=== PATIENT | male | born 1975 | race Caucasian/White ===

== ENCOUNTER 2018-03-13 23:59 | Emergency (ER) | payer BC ==
[2018-03-14] MEDS ORDERED: NORMAL SALINE 1000 ML 1,000 ML IV ONE (00:04)
--- NOTE | 2018-03-14 00:07 | ER Document Report ---
ED General - General Stated Complaint: POSSIBLE INTOXICATION Time Seen by Provider: 03/14/18 00:04 Notes: Patient is a 42-year-old male who presents with complaint of severe alcohol intoxication. Apparently his girlfriend found him in the bed and she felt he was not breathing appropriately and looked unwell and was unresponsive and therefore ambulance was called. Family in the past patient had alcohol poisoning so bad he had to be life flighted. Patient says he drank approximate half a gallon of vodka tonight. He says he does not drink every night but drinks occasionally. He has no other complaints this time. Is now awake and alert. He says he otherwise feels okay. - Related Data Allergies/Adverse Reactions: tamsulosin HCl [From [employer]] Allergy (Verified 04/15/13 17:19) Past Medical History - Social History Smoking Status: Unknown if Ever Smoked Frequency of alcohol use: Occasional Drug Abuse: None Family History: Reviewed & Not Pertinent - Past Medical History Cardiac Medical History: Reports: Hx Hypercholesterolemia Pulmonary Medical History: Denies: Hx Tuberculosis Endocrine Medical History: Reports: Hx Hypothyroidism Renal/ Medical History: Reports: Hx Kidney Stones GI Medical History: Reports: Hx Gastroesophageal Reflux Disease Psychiatric Medical History: Reports: Hx Anxiety, Hx Depression - Immunizations Immunizations up to date: Yes Hx Diphtheria, Pertussis, Tetanus Vaccination: Yes Review of Systems - Review of Systems Notes: My Normal Review Basic REVIEW OF SYSTEMS: CONSTITUTIONAL : Denies fever, chills, or sweats. Denies recent illness. EENT: Denies eye, ear, throat, or mouth pain or symptoms. Denies nasal or sinus congestion. CARDIOVASCULAR: Denies chest pain. RESPIRATORY: Denies cough, cold, or chest congestion. Denies shortness of breath, difficulty breathing, or wheezing. GASTROINTESTINAL: Denies abdominal pain. Denies nausea, vomiting, or diarrhea. MUSCULOSKELETAL: Denies neck or back pain or joint pain or swelling. SKIN: Denies rash or skin lesions. NEUROLOGICAL: Had altered mental status and hard to awaken. ALL OTHER SYSTEMS REVIEWED AND NEGATIVE. Physical Exam - Vital signs Vitals: Resp Pulse Ox 19 99 03/13/18 23:45 03/13/18 23:45 - Notes Notes: General Appearance: Well nourished, alert, cooperative, no acute distress, no obvious discomfort. Vitals: reviewed, See vital signs table. Head: no swelling or tenderness to the head Eyes: PERRL, EOMI, Conjuctiva clear Mouth: No decreasd moisture Lungs: No wheezing, No rales, No rhonci, No accessory muscle use, good air exchange bilaterally. Heart: Normal rate, Regular rythm, No murmur, no rub Abdomen: Normal BS, soft, No rigidity, No abdominal tenderness, No guarding, no rebound, no abdominal masses, no organomegaly Extremities: strength 5/5 in all extremities, good pulses in all extremities, no swelling or tenderness in the extremities, no edema. Skin: warm, dry, appropriate color, no rash Neuro: Will slur his speech some., oriented x 3, normal affect, responds appropriately to questions. Nerves II through XII intact. Distal sensation intact. Gait not tested due to alcohol intoxication. Course - Re-evaluation Re-evalutation: 03/14/18 02:33 Patient's mother is at bedside. She conforms the history aware patient in the past has drank so much that he ended up in ICU and on a ventilator. This time he does not appear that he presented intoxicated. He is currently resting comfortably. His chemistry panel is normal. His vital signs are normal. Patient's mother is going to go home and will call her in the morning to give her an update and most likely I suspect the patient will be sober enough at that time to be able to go home. Patient's mother's name is Sandra and her phone number is [phone]. 03/14/18 05:52 Patient is awake and alert. He is able to answer questions appropriately is able stand on his own power maintain decent balance. He still smells of alcohol. I informed him that he is safe to go once he has a ride. I told him that his mom was willing to come pick him up. He does not want me because mom and he has his phone he says he will call someone different for a ride. Once he has a ride home he will be given his discharge papers and allowed to leave. I asked patient if he has any further concerns at this time patient says that he does not. Patient to return to ER if he has any concerns or feels unwell. Dictation of this chart was performed using voice recognition software; therefore, there may be some unintended grammatical errors. - Vital Signs Vital signs: Temp Pulse Resp BP Pulse Ox 97.5 F 18 129/91 H 98 03/14/18 00:13 03/14/18 05:01 03/14/18 05:01 03/14/18 05:01 - Laboratory Result Diagrams: 03/14/18 00:20 Discharge - Discharge Clinical Impression: Alcohol abuse Condition: Good Disposition: HOME, SELF-CARE Additional Instructions: Please stop drinking large amounts of alcohol. Continued alcohol use will lead to liver failure and probable . Please consider joining a support group such as Alcoholics Anonymous. Please return to the ER if you feel unwell or have any further concerns. Referrals: MARIAN MILLER MD [COMMUNITY BASED STAFF] - Follow up as needed
--- NOTE | 2018-03-14 00:53 | RADIOLOGY REPORT (SQ) ---
CT BRAIN AND CERVICAL SPINE WITHOUT IV CONTRAST HISTORY: Trauma. COMPARISON: None. TECHNIQUE: CT scan of the brain and cervical spine. This exam was performed according to our departmental dose-optimization program, which includes automated exposure control, adjustment of the mA and/or kV according to patient size and/or use of iterative reconstruction technique. FINDINGS: BRAIN: The ventricles, cisterns, and sulci are age-appropriate. The pritchett-white matter differentiation is preserved without evidence of acute infarction. No acute intracranial hemorrhage or extra-axial fluid collection is seen. No midline shift, mass effect, or hydrocephalus. No air-fluid levels are seen in the sinuses. No calvarial fracture. CERVICAL SPINE: No acute fracture. Straightening of the normal cervical lordosis, which may be due to cervical collar, muscle spasm, or patient positioning. No static listhesis. Vertebral body heights and disc spaces are preserved. No significant canal stenosis. No prevertebral soft tissue swelling. IMPRESSION: 1. No acute intracranial abnormality. 2. No acute fracture or static listhesis of the cervical spine.
[2018-03-14 01:02] LABS: ANION GAP 15 (5-19); BLOOD UREA NITROGEN 10 mg/dL (7-20); CALCIUM 9.1 mg/dL (8.4-10.2); CARBON DIOXIDE 24 mmol/L (22-30); CHLORIDE 106 mmol/L (98-107); GLUCOSE 98 mg/dL (75-110); POTASSIUM 4.2 mmol/L (3.6-5.0); SODIUM 144.6 mmol/L (137-145)
[2018-03-14 07:23] VITALS: BP 134/85
== END 2018-03-14 07:25 | disposition home or self-care (01) ==
LOC: ER 23:59
DX: F10.920 Alcohol use, unspecified with intoxication, uncomplicated (principal); E78.00 Pure hypercholesterolemia, unspecified; E03.9 Hypothyroidism, unspecified; Z87.442 Personal history of urinary calculi
CPT/HCPCS: 99285; 96360; 36415; 82962; 80048; 70450; 72125; J7030

== ENCOUNTER 2018-05-02 01:05 | Inpatient (IN) | payer BC ==
[2018-05-02] MEDS ORDERED: MULTIVITAMIN TABLET PO ONE (01:28)
[2018-05-02] MEDS ORDERED: THIAMINE HCL 100 MG, FOLIC ACID 1 MG in NORMAL SALINE 250 ML IV ONE (01:28)
[2018-05-02] MEDS ORDERED: NORMAL SALINE 1000 ML 1,000 ML IV ONE (01:28)
--- NOTE | 2018-05-02 01:29 | ER Document Report ---
ED General - General Chief Complaint: ETOH Abuse Stated Complaint: ETOH Time Seen by Provider: 05/02/18 01:12 Notes: Patient is a 42-year-old male who presents after calling the paramedics 61 to come to the ER because he needs help with alcohol abuse. Has been drinking consistently for about a week year. He says he will sometimes go a day or 2 without drinking. He says he has had some withdrawal in the past. Patient says that he drinks because he had divorce with his . This made him depressed. He says he is more depressed because he does not have custody of his son. He says he gets to see his son personally once a week. He says on the days that he has a sound he does not drink alcohol at all and he feels well ; however, when the son asked to go back to his mother he starts drinking again. He denies taking any drugs. Denies being on any medications. He says he is otherwise healthy. He denies any suicidal ideations. TRAVEL OUTSIDE OF THE [place] IN LAST 30 DAYS: No - Related Data Allergies/Adverse Reactions: tamsulosin HCl [From [employer]] Allergy (Verified 04/15/13 17:19) Past Medical History - Social History Smoking Status: Never Smoker Frequency of alcohol use: Heavy Drug Abuse: None Family History: Reviewed & Not Pertinent Patient has suicidal ideation: No Patient has homicidal ideation: No - Past Medical History Cardiac Medical History: Reports: Hx Hypercholesterolemia Pulmonary Medical History: Denies: Hx Tuberculosis Endocrine Medical History: Reports: Hx Hypothyroidism Renal/ Medical History: Reports: Hx Kidney Stones. Denies: Hx Peritoneal Dialysis GI Medical History: Reports: Hx Gastroesophageal Reflux Disease Psychiatric Medical History: Reports: Hx Anxiety, Hx Depression - Immunizations Immunizations up to date: Yes Hx Diphtheria, Pertussis, Tetanus Vaccination: Yes Review of Systems - Review of Systems Notes: My Normal Review Basic REVIEW OF SYSTEMS: CONSTITUTIONAL : Denies fever, chills, or sweats. Denies recent illness. EENT: Denies eye, ear, throat, or mouth pain or symptoms. Denies nasal or sinus congestion. CARDIOVASCULAR: Denies chest pain. RESPIRATORY: Denies cough, cold, or chest congestion. Denies shortness of breath, difficulty breathing, or wheezing. GASTROINTESTINAL: Denies abdominal pain. Denies nausea, vomiting, or diarrhea. Denies constipation. Last BM: MUSCULOSKELETAL: Denies neck or back pain or joint pain or swelling. SKIN: Denies rash or skin lesions. NEUROLOGICAL: Denies altered mental status or loss of consciousness. Denies headache. Denies weakness or paralysis or loss of use of either side. Denies problems with gait or speech. Denies sensory or motor loss. PSYCHIATRIC: Session. No suicidal ideations. ALL OTHER SYSTEMS REVIEWED AND NEGATIVE. Physical Exam - Vital signs Vitals: Resp Pulse Ox 17 96 05/02/18 01:18 05/02/18 01:18 - Notes Notes: General Appearance: Well nourished, alert, cooperative, no acute distress, no obvious discomfort. Well-appearing. Vitals: reviewed, See vital signs table. Head: no swelling or tenderness to the head Eyes: PERRL, EOMI, Conjuctiva clear Mouth: No decreasd moisture Lungs: No wheezing, No rales, No rhonci, No accessory muscle use, good air exchange bilaterally. Heart: Normal rate, Regular rythm, No murmur, no rub Abdomen: Normal BS, soft, No rigidity, No abdominal tenderness, No guarding, no rebound, no abdominal masses, no organomegaly Extremities: strength 5/5 in all extremities, good pulses in all extremities, no swelling or tenderness in the extremities, no edema. Skin: warm, dry, appropriate color, no rash Neuro: speech clear, oriented x 3, normal affect, responds appropriately to questions. Renal nerves II through XII are intact. Patient is pleasant but obvious intoxicated with alcohol. He is able move all 4 extremities on his own. I did not test gait at this time is for him to be more sober when testing gait. Course - Re-evaluation Re-evalutation: 05/02/18 06:14 Patient is alcohol abuse with depression. He is not suicidal and I do not feel he has been involuntary commitment paperwork. He wants to speak with mental health about further help in regards to both depression as well as resources for alcohol abuse. Once patient is clinically sober and not showing signs of withdrawal he will be medically stable for mental health evaluation. Dictation of this chart was performed using voice recognition software; therefore, there may be some unintended grammatical errors. - Vital Signs Vital signs: Temp Pulse Resp BP Pulse Ox 97.8 F 21 H 112/76 99 05/02/18 01:25 05/02/18 05:01 05/02/18 05:00 05/02/18 05:01 - Laboratory Result Diagrams: 05/02/18 01:35 05/02/18 01:35 Laboratory results interpreted by me: 05/02/18 05/02/18 01:35 01:35 RDW 14.3 H Sodium 146.4 H Anion Gap 21 H Glucose 152 H AST 88 H Total Protein 8.3 H Albumin 5.1 H Salicylates < 1.0 L Acetaminophen < 10 L Serum Alcohol 350 H* - EKG Interpretation by Me Additional EKG results interpreted by me: 05/02/18 02:18 EKG is reviewed and interpreted by me. EKG shows sinus rhythm with a rate of [address] segment elevation or depression. No ischemic T wave inversions. CA interval, QRS duration, QTc intervals are within normal range. Old EKG for comparison is from May 06, 2013.
[2018-05-02] MEDS ORDERED: FOLIC ACID INJ 5 MG/1 ML 10 ML VIAL IV PRN (01:49)
[2018-05-02] MEDS ORDERED: THIAMINE HCL INJ 200 MG/2 ML VIAL INJ PRN (01:49)
[2018-05-02 01:51] LABS: ABSOLUTE EOSINOPHILS # (AUTO) 0.1 10^3/uL (0.0-0.6); ABSOLUTE LYMPHOCYTES (AUTO) 2.4 10^3/uL (0.5-4.7); ABSOLUTE MONOCYTES (AUTO) 0.6 10^3/uL (0.1-1.4); ABSOLUTE NEUT (AUTO) 3.7 10^3/uL (1.7-8.2); BASOPHILS % (AUTO) 0.6 % (0-2); MEAN CORPUSCULAR HEMOGLOBIN 32.9 pg (27.0-33.4); MEAN CORPUSCULAR VOLUME 97 fl (80-97); MONOCYTES % (AUTO) 9.5 % (3-13); PLATELET COUNT 242 10^3/uL (150-450); RED BLOOD COUNT 4.85 10^6/uL (4.35-5.55); RED CELL DISTRIBUTION WIDTH 14.3 % (11.5-14.0); SEGMENTED NEUTROPHILS % (AUTO) 53.9 % (42-78); TOTAL CELLS COUNTED % (AUTO) 100 %; WHITE BLOOD COUNT 6.8 10^3/uL (4.0-10.5)
[2018-05-02 02:02] LABS: ALANINE AMINOTRANSFERASE 36 U/L (21-72); ALBUMIN 5.1 g/dL (3.5-5.0); ALKALINE PHOSPHATASE 67 U/L (38-126); ASPARTATE AMINO TRANSFERASE 88 U/L (17-59); BILIRUBIN,DIRECT 0.3 mg/dL (0.0-0.4); BILIRUBIN,TOTAL 0.5 mg/dL (0.2-1.3); BLOOD UREA NITROGEN 9 mg/dL (7-20); CALCIUM 9.9 mg/dL (8.4-10.2); CHLORIDE 101 mmol/L (98-107); GLUCOSE 152 mg/dL (75-110); POTASSIUM 3.7 mmol/L (3.6-5.0); TOTAL PROTEIN 8.3 g/dL (6.3-8.2)
[2018-05-02 02:05] LABS: ACETAMINOPHEN < 10 ug/mL (10-30); SALICYLATE < 1.0 mg/dL (2.0-20.0)
[2018-05-02 02:07] LABS: CARBON DIOXIDE 24 mmol/L (22-30); SODIUM 146.4 mmol/L (137-145)
[2018-05-02 02:09] LABS: ANION GAP 21 (5-19)
[2018-05-02 02:12] LABS: ALCOHOL 350 mg/dL (NONE DETECTED)
--- NOTE | 2018-05-02 07:43 | EKG REPORT ---
SEVERITY:- NORMAL ECG - SINUS RHYTHM : Confirmed by: Les Pedraza MD 02-May-2018 07:42:36
[2018-05-02] MEDS ORDERED: LORAZEPAM INJ 2 MG/1 ML VIAL IV ONE (09:48)
[2018-05-02] MEDS ORDERED: NORMAL SALINE 250 ML IV ONE (09:49)
[2018-05-02] MEDS ORDERED: DIAZEPAM 5 MG TABLET PO ONE (10:01)
--- NOTE | 2018-05-02 10:06 | ER Document Report ---
ED General - General Chief Complaint: ETOH Abuse Stated Complaint: ETOH Time Seen by Provider: 05/02/18 01:12 TRAVEL OUTSIDE OF THE [place] IN LAST 30 DAYS: No - HPI Notes: Patient is a 42-year-old male that presents to the emergency department for chief complaint of alcohol abuse. Patient presented to the emergency room last night for concern of alcohol abuse. He states that he has been drinking heavily over the last few months. He attempted to wean himself off alcohol at home but knows that he was unable to detox completely by himself. Patient was requesting inpatient detox. He was evaluated by psychiatry this morning in an attempt to find placement for his alcohol detox. Patient is currently complaining of feeling very jittery. He is seeing shadow hallucinations in his vision. He is concerned that he may have a seizure. He does have a history of alcohol withdrawal seizures in the past. Past Medical History: Hypothyroidism, hyperlipidemia Past Surgical History: Reviewed in chart Social History: Alcohol abuse. Denies tobacco and drug use Family History: Reviewed and noncontributory for presenting illness Allergies: Reviewed, see documented allergy list. REVIEW OF SYSTEMS: CONSTITUTIONAL : No fever No chills diaphoresis No recent illness EENT: vision changes No congestion No sore throat CARDIOVASCULAR: No chest pain palpitations RESPIRATORY: No shortness of breath No cough No difficulty breathing GASTROINTESTINAL: No abdominal pain No nausea No vomiting No diarrhea GENITOURINARY: No dysuria No hematuria No difficulty urinating MUSCULOSKELETAL: No back pain No leg pain No arm pain SKIN: No rashes No lesions LYMPHATIC: No swollen, enlarged glands. NEUROLOGICAL: No lightheadedness No headache No weakness No paresthesias Tremors PSYCHIATRIC: anxiety No depression PHYSICAL EXAMINATION: Vital signs reviewed, nursing noted reviewed. GENERAL: Well-appearing, well-nourished and in no acute distress. HEAD: Atraumatic, normocephalic. EYES: Horizontal nystagmus. PERRLA, sclera anicteric, conjunctiva are normal. ENT: nares patent, oropharynx clear without exudates. Moist mucous membranes. NECK: Normal range of motion, supple without lymphadenopathy LUNGS: Breath sounds clear to auscultation bilaterally and equal. No wheezes rales or rhonchi. HEART: Tachycardic, regular rhythm without murmurs ABDOMEN: Soft, nontender, normoactive bowel sounds. No rebound, guarding, or rigidity. No masses appreciated. EXTREMITIES: Nontender, good range of motion, no pitting or edema. NEUROLOGICAL: Tremulous no focal neurological deficits. Moves all extremities spontaneously Motor and sensory grossly intact on exam. PSYCH: Anxious SKIN: Warm, Dry, normal turgor, no rashes or lesions noted on exposed skin - Related Data Allergies/Adverse Reactions: tamsulosin HCl [From [employer]] Allergy (Verified 04/15/13 17:19) Past Medical History - Social History Smoking Status: Never Smoker Frequency of alcohol use: Heavy Drug Abuse: None Family History: Reviewed & Not Pertinent Patient has suicidal ideation: No Patient has homicidal ideation: No - Past Medical History Cardiac Medical History: Reports: Hx Hypercholesterolemia Pulmonary Medical History: Denies: Hx Tuberculosis Endocrine Medical History: Reports: Hx Hypothyroidism Renal/ Medical History: Reports: Hx Kidney Stones. Denies: Hx Peritoneal Dialysis GI Medical History: Reports: Hx Gastroesophageal Reflux Disease Psychiatric Medical History: Reports: Hx Anxiety, Hx Depression - Immunizations Immunizations up to date: Yes Hx Diphtheria, Pertussis, Tetanus Vaccination: Yes Physical Exam - Vital signs Vitals: Resp Pulse Ox 17 96 05/02/18 01:18 05/02/18 01:18 Course - Re-evaluation Re-evalutation: 05/02/18 10:05 Vitals reviewed. Nursing notes reviewed. Patient is becoming tachycardic, tremulous and having visual hallucinations. He appears to be going into acute alcohol withdrawal. He was started on IV hydration and given Valium for his alcohol withdrawal symptoms. He has already received a dose of folate, thiamine and a multivitamin. Patient has a history of alcohol withdrawal seizures and seizure precautions were started. His case was discussed with Dr. Beach who will admit him to the ICU for acute alcohol withdrawal. Patient is in agreement with this plan. Repeat alcohol level and CMP today. - Vital Signs Vital signs: Temp Pulse Resp BP Pulse Ox 97.8 F 11 L 137/89 H 94 05/02/18 01:25 05/02/18 09:06 05/02/18 09:06 05/02/18 09:06 - Laboratory Result Diagrams: 05/02/18 01:35 05/02/18 01:35 Laboratory results interpreted by me: 05/02/18 05/02/18 01:35 01:35 RDW 14.3 H Sodium 146.4 H Anion Gap 21 H Glucose 152 H AST 88 H Total Protein 8.3 H Albumin 5.1 H Salicylates < 1.0 L Acetaminophen < 10 L Serum Alcohol 350 H* Critical Care Note - Critical Care Note Total time excluding time spent on procedures (mins): 35 Comments: alcohol withdrawls with developing visual changes and potential for seizure and further neurologic decompensation. Discharge - Discharge Clinical Impression: Alcohol withdrawal Qualifiers: Complication of substance-induced condition: uncomplicated Qualified Code(s): F10.230 - Alcohol dependence with withdrawal, uncomplicated Condition: Stable Disposition: ADMITTED INPATIENT Admitting Provider: Hospitalist Unit Admitted: ICU
[2018-05-02] MEDS ORDERED: ONDANSETRON HCL INJ/PF 4 MG/2 ML SDV IV PRN (10:08)
[2018-05-02] MEDS ORDERED: LEVALBUTEROL HCL NEB 1.25 MG/3 ML AMPUL NEB PRN (10:08)
[2018-05-02 10:22] LABS: APPEARANCE,URINE CLEAR; BILIRUBIN,URINE NEGATIVE (NEGATIVE); COLOR,URINE YELLOW; GLUCOSE, URINE NEGATIVE (NEGATIVE); KETONES,URINE NEGATIVE (NEGATIVE); LEUKOCYTE ESTERASE,URINE NEGATIVE (NEGATIVE); NITRITE,URINE NEGATIVE (NEGATIVE); PROTEIN,URINE 100 mg/dL (NEGATIVE); URINE SPECIFIC GRAVITY 1.009; UROBILINOGEN,URINE NEGATIVE mg/dL (<2.0)
[2018-05-02 10:29] LABS: URINE AMPHETAMINES SCREEN NEGATIVE; URINE BARBITURATES SCREEN NEGATIVE; URINE BENZODIAZEPINES SCREEN NEGATIVE; URINE COCAINE SCREEN NEGATIVE; URINE MARIJUANA (THC) SCREEN NEGATIVE; URINE METHADONE SCREEN NEGATIVE; URINE PHENCYCLIDINE SCREEN NEGATIVE
[2018-05-02] MEDS ORDERED: ATENOLOL 50 MG TABLET PO SCH (11:00)
[2018-05-02] MEDS: DIAZEPAM INJ 10 MG/2 ML DISP.SYRIN IV PRN ×4 (11:18→22:35)
[2018-05-02] MEDS: NORMAL SALINE 1000 ML 1,000 ML IV PRN ×3 (11:22→22:36)
[2018-05-02] MEDS: DIAZEPAM 5 MG TABLET PO SCH ×4 (13:13→23:53)
--- NOTE | 2018-05-02 13:18 | PSYCHOLOGICAL NOTE ---
Psych Note - Psych Note Date seen by psych provider: 05/02/18 Time seen by psych provider: 08:00 Psych Note: Reason for Consult: substance abuse Consent permissions: Patient's mother at bedside per patient's request Patient is a 42-year-old male who presents after calling EMS to come to the ED because he needs help with alcohol abuse. Patient disclosed that he has been drinking since approximately , when he was going through a divorce with his . He reports that he has attempted sobriety multiple times and sometimes can maintain it for a while but then ends up drinking again. 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 He reports embarrassment because of his drinking and needing help. He states that he has had seizures in the past from detoxing. He knew that he was at the breaking point and last night he was making phone calls to both the [facility] in a residential treatment facility in [place]. Patient is alert and orientated to person, place, time and circumstance. Mood is dysphoric with tearful affect. Patient denies homicidal and suicidal ideation. Delusions are absent behaviors congruent with intact reality based presentation i.e. organized and linear thought process. Eye contact is fair. Intellectual abilities appear to be within the average range. Attention and concentration are fair. Insight, judgment, impulse control are fair. Medication recommendations at this time 303.00 (F10.229) alcohol intoxication with use disorder; severe Impression\\plan: Patient is being admitted as a medical patient for detox. He reports wanting assistance in sobriety. Patient discloses just reaching out last night for both assistance in detox and possible longer term treatment. Patient will be reevaluated once sober to ensure he continues to want assistance. Dr. Nichole was consulted and the care management this patient; attending physicians in agreement with recommendations and disposition.
[2018-05-02] MEDS: HEPARIN SOD (PORCINE) 5,000 UNIT/ML 1 ML SYRINGE SUBCUT SCH ×2 (15:31→21:47)
--- NOTE | 2018-05-02 17:28 | PDOC H&P ---
History of Present Illness Admission Date/PCP: 05/02/18 10:29 Patient complains of: Desire to stop drinking alcohol History of Present Illness: ERWIN DE LA CRUZ is a 42 year old male who presented to the emergency room via EMS asking for help to stop drinking alcohol. He admits that at approximately 9 :30 PM last evening he was at home alone drinking and he had a sudden moment of realization that he absolutely had to stop drinking or he was going to . To this end he packed his bag and began walking to the emergency room. He was stopped by police on the highway where he was walking along the side of the road carrying his suitcase. When questioned by the police he told them that he needed to stop drinking alcohol and he was walking to the hospital to get help. The police contacted emergency medical services and the paramedics evaluated Erwin and then brought him to the [facility] emergency room for further evaluation and treatment. In the ER he was found to be intoxicated with a blood alcohol of 350. He was observed for several hours in the emergency room and was noted to become somewhat shaky resulting in administration of Ativan and the determination that he would need help in coping with his withdrawal symptoms. Erwin admits that he has been drinking very heavily for 5-6 years. He stopped drinking for over a month up until approximately 1 week ago when he started drinking again for unknown reasons. He admits that he generally drinks at least a little bit every day, or he starts to get shaky, but at least half of the days he drinks approximately 27 ounces of vodka. He further admits that he has detoxed on his own in the past at home and during that detoxification he experienced visual hallucinations and he is certain that he had at least one seizure as he had an episode of unexplained loss of bladder and bowel control. The remainder of his emergency room evaluation was essentially unremarkable. He was therefore admitted to the ICU for acute alcohol detoxification with the plan to place him in a inpatient rehab program upon finishing detox. Past Medical History Cardiac Medical History: Reports: Hyperlipidema Denies: Coronary Artery Disease, DVT, Myocardial Infarction, Hypertension, Pulmonary Embolism Pulmonary Medical History: Denies: Asthma, Chronic Obstructive Pulmonary Disease (COPD), Tuberculosis EENT Medical History: Reports: None Neurological Medical History: Reports: Seizures - With alcohol withdrawal Denies: Migraine, Multiple Sclerosis Endocrine Medical History: Reports: Hypothyroidism Denies: Diabetes Mellitus Type 1, Diabetes Mellitus Type 2 Renal/ Medical History: Denies: Chronic Kidney Disease, Nephrolithiasis Malignancy Medical History: Reports: None GI Medical History: Reports: Gastroesophageal Reflux Disease Denies: Crohn's Disease, Ulcerative Colitis Musculoskeltal Medical History: Denies: Arthritis, Gout Skin Medical History: Denies: Eczema, Psoriasis Psychiatric Medical History: Reports: Alcohol Dependency, Depression Denies: General Anxiety Disorder, Substance Abuse, Tobacco Dependency Traumatic Medical History: Reports: None Hematology: Denies: Anemia, Bleeding Tendencies Infectious Medical History: Reports: None Social History Information Source: Patient Lives with: Alone Smoking Status: Never Smoker Frequency of Alcohol Use: Heavy - See history of present illness Amount of Alcoholic Beverages Per Day: See history of present illness Last Alcohol Use: 05/01/18 - See history of present illness Hx Recreational Drug Use: No Drugs: None Hx Prescription Drug Abuse: No Past Social History Note: Erwin admits that he recently sought out help to stop drinking from his primary care provider where he received a prescription for naltrexone which he had used on a previous occasion to reduce his craving for alcohol. - Advance Directive Resuscitation Status: Full Code Surrogate healthcare decision maker:: Patient's mother Sandra Mock Family History Family History: Hyperlipidemia, Thyroid Disfunction Parental Family History Reviewed: Yes Children Family History Reviewed: No Sibling(s) Family History Reviewed.: Yes Medication/Allergy Home Medications: Hydrochlorothiazide [Hydrodiuril 12.5 mg Tablet] 12.5 mg PO DAILY 05/02/18 Levothyroxine Sodium [Synthroid 0.05 mg Tablet] 0.05 mg PO Q6AM 05/02/18 Lisinopril [Zestril] 20 mg PO DAILY 05/02/18 Metoprolol Succinate [Toprol Xl 25 mg Tab.sr] 25 mg PO DAILY 05/02/18 Naltrexone 50 mg PO DAILY 05/02/18 Allergies/Adverse Reactions: tamsulosin HCl [From Flomax] Allergy (Verified 04/15/13 17:19) Review of Systems Constitutional: ABSENT: chills, fever(s) Eyes: ABSENT: visual disturbances, other - Ocular pain Ears: ABSENT: hearing changes, other - Ear pain Nose, Mouth, and Throat: ABSENT: mouth pain, sore throat Cardiovascular: ABSENT: chest pain, dyspnea on exertion, edema, orthropnea, palpitations Respiratory: ABSENT: cough, dyspnea Gastrointestinal: ABSENT: abdominal pain, constipation, diarrhea, nausea, vomiting Genitourinary: ABSENT: dysuria, hematuria Musculoskeletal: ABSENT: back pain, joint swelling, other - Joint pain Integumentary: ABSENT: pruritus, rash Neurological: PRESENT: tremor(s). ABSENT: convulsions, vertigo Psychiatric: PRESENT: depression. ABSENT: anxiety, hallucinations, homidical ideation, suicidal ideation Endocrine: ABSENT: cold intolerance, heat intolerance Hematologic/Lymphatic: ABSENT: easy bleeding, easy bruising Allergic/Immunologic: ABSENT: seasonal rhinorrhea, other - Insect bite allergy Physical Exam Vital Signs: Temp Pulse Resp BP Pulse Ox 98.6 F 71 20 126/78 H 96 05/02/18 14:53 05/02/18 14:53 05/02/18 14:53 05/02/18 14:53 05/02/18 14:53 Intake & Output 04/30/18 05/01/18 05/02/18 23:59 23:59 23:59 Intake Total 631 Balance 631 Weight 74.1 kg General appearance: PRESENT: no acute distress, cooperative, well-developed, well-nourished, other - Patient appears to be tremulous at the time my evaluation. Head exam: PRESENT: atraumatic, normocephalic Eye exam: PRESENT: conjunctiva pink, EOMI. ABSENT: nystagmus, scleral icterus Ear exam: PRESENT: normal external ear exam. ABSENT: bleeding, drainage Mouth exam: PRESENT: neck supple, other - Oral mucosa moist and intact, dentition in good repair Neck exam: ABSENT: JVD, tracheal deviation Respiratory exam: PRESENT: clear to auscultation vinicio, symmetrical, unlabored Cardiovascular exam: PRESENT: RRR. ABSENT: clicks, gallop, rubs Pulses: PRESENT: normal radial pulses, normal dorsalis pedis pul Vascular exam: PRESENT: normal capillary refill. ABSENT: pallor GI/Abdominal exam: PRESENT: normal bowel sounds, soft. ABSENT: organolmegaly, tenderness Rectal exam: PRESENT: deferred Extremities exam: ABSENT: joint swelling, pedal edema Musculoskeletal exam: PRESENT: ambulatory, full ROM, normal inspection Neurological exam: PRESENT: alert, oriented to person, oriented to place, oriented to time, oriented to situation, CN II-XII grossly intact, other - Generalized tremulousness with mild hyperreflexia noted.. ABSENT: motor sensory deficit Psychiatric exam: PRESENT: appropriate affect, depressed Skin exam: PRESENT: dry, intact, warm. ABSENT: jaundice, rash, urticaria Assessment & Plan - Diagnosis (1) Alcohol withdrawal Qualifiers: Complication of substance-induced condition: with unspecified complication Qualified Code(s): F10.239 - Alcohol dependence with withdrawal, unspecified Is this a current diagnosis for this admission?: Yes Plan: Patient is admitted to the ICU and will be treated with IV fluids and he will be started on a regiment of IV diazepam 10 mg every hour as needed anxiety, agitation, tremulousness, hallucinations, seizure or aggressive behavior. He will also be on a scheduled dose of Valium 10 mg p.o. every 4 hours for 12 doses. (2) Alcoholism with alcohol dependence Qualifiers: Substance use status: in withdrawal Complication of substance-induced condition: with unspecified complication Qualified Code(s): F10.239 - Alcohol dependence with withdrawal, unspecified Is this a current diagnosis for this admission?: Yes Plan: Patient's alcohol withdrawal will be addressed as indicated above. After his acute detoxification he would like to be transferred to an inpatient alcohol rehab program and this will be the goal of our discharge planning efforts. (3) HTN (hypertension) Qualifiers: Hypertension type: essential hypertension Qualified Code(s): I10 - Essential (primary) hypertension Is this a current diagnosis for this admission?: Yes Plan: Patient will be continued on his usual antihypertensive regiment during his hospital course and at the time of discharge. Adjustments will only be made as required. (4) Hypothyroid Qualifiers: Hypothyroidism type: unspecified Qualified Code(s): E03.9 - Hypothyroidism , unspecified Is this a current diagnosis for this admission?: Yes Plan: Patient will be continued on his usual dose of thyroid replacement therapy throughout his hospitalization and upon discharge. A thyroid profile will be obtained to evaluate the efficacy of the patient's current therapy. - Time Time Spent: 30 to 50 Minutes Medications reviewed and adjusted accordingly: Yes Anticipated discharge: Other - Inpatient alcohol rehabilitation program - Inpatient Certification Based on my medical assessment, after consideration of the patient's comorbidities, presenting symptoms, or acuity I expect that the services needed warrant INPATIENT care.: Yes I certify that my determination is in accordance with my understanding of Medicare's requirements for reasonable and necessary INPATIENT services [42 CFR 412.3e].: Yes Medical Necessity: Need Close Monitoring Due to Risk of Patient Decompensation, Risk of Complication if Not Cared For in Hospital - Plan Summary Plan Summary: Patient will be admitted ICU for ongoing supportive care as well as active intervention and prevention of complications of alcohol withdrawal.
[2018-05-02] MEDS ORDERED: DIAZEPAM INJ 10 MG/2 ML DISP.SYRIN ONE (17:43)
[2018-05-02] MEDS: NORMAL SALINE 1000 ML 1,000 ML with POTASSIUM CHLORIDE 20 MEQ, MAGNESIUM SULFATE 8 MEQ,... IV SCH ×5 (17:57)
[2018-05-02] MEDS: DOCUSATE SODIUM 100 MG CAPSULE PO SCH (18:47)
[2018-05-02] MEDS: PANTOPRAZOLE SODIUM 40 MG VIAL IV SCH (21:47)
[2018-05-03 04:12] LABS: ABSOLUTE EOSINOPHILS # (AUTO) 0.1 10^3/uL (0.0-0.6); ABSOLUTE LYMPHOCYTES (AUTO) 1.3 10^3/uL (0.5-4.7); ABSOLUTE MONOCYTES (AUTO) 0.3 10^3/uL (0.1-1.4); ABSOLUTE NEUT (AUTO) 2.5 10^3/uL (1.7-8.2); BASOPHILS % (AUTO) 0.5 % (0-2); EOSINOPHILS % (AUTO) 2.1 % (0-6); HEMATOCRIT 37.6 % (37.9-51.0); MEAN CORPUSCULAR HGB CONC 34.1 g/dL (32.0-36.0); MEAN CORPUSCULAR VOLUME 97 fl (80-97); MONOCYTES % (AUTO) 6.4 % (3-13); PLATELET COUNT 141 10^3/uL (150-450); RED BLOOD COUNT 3.88 10^6/uL (4.35-5.55); RED CELL DISTRIBUTION WIDTH 14.3 % (11.5-14.0); TOTAL CELLS COUNTED % (AUTO) 100 %; WHITE BLOOD COUNT 4.2 10^3/uL (4.0-10.5)
[2018-05-03 04:13] LABS: INTERNATIONAL RATION (INR) 0.98; PROTHROMBIN TIME 13.4 SEC (11.4-15.4)
[2018-05-03 04:14] LABS: PARTIAL THROMBOPLASTIN TIME 32.2 SEC (23.5-35.8)
[2018-05-03 04:15] LABS: HEMOGLOBIN 12.8 g/dL (13.5-17.0)
[2018-05-03] MEDS: DIAZEPAM 5 MG TABLET PO SCH ×6 (04:30→22:15)
[2018-05-03 04:31] LABS: ALANINE AMINOTRANSFERASE 32 U/L (21-72); ALBUMIN 3.2 g/dL (3.5-5.0); ALKALINE PHOSPHATASE 57 U/L (38-126); AMYLASE 49 U/L (30-110); ANION GAP 9 (5-19); ASPARTATE AMINO TRANSFERASE 58 U/L (17-59); BILIRUBIN,DIRECT 0.2 mg/dL (0.0-0.4); BILIRUBIN,TOTAL 0.8 mg/dL (0.2-1.3); BLOOD UREA NITROGEN 7 mg/dL (7-20); CALCIUM 7.9 mg/dL (8.4-10.2); CARBON DIOXIDE 26 mmol/L (22-30); CHLORIDE 106 mmol/L (98-107); GLUCOSE 89 mg/dL (75-110); LIPASE 233.5 U/L (23-300); POTASSIUM 4.2 mmol/L (3.6-5.0); SODIUM 140.9 mmol/L (137-145); TOTAL PROTEIN 5.7 g/dL (6.3-8.2)
[2018-05-03 04:48] LABS: FREE T3 3.09 pg/mL (2.77-5.27); FREE T4 (FREE THYROXINE) 0.69 ng/dL (0.78-2.19)
[2018-05-03 05:02] LABS: THYROID STIMULATING HORMONE 4.4 uIU/mL (0.47-4.68)
[2018-05-03] MEDS: LEVOTHYROXINE SODIUM 0.05 MG TABLET PO SCH (05:49)
[2018-05-03] MEDS: HEPARIN SOD (PORCINE) 5,000 UNIT/ML 1 ML SYRINGE SUBCUT SCH ×2 (05:49→14:08)
[2018-05-03] MEDS: NORMAL SALINE 1000 ML 1,000 ML IV PRN ×2 (05:49→14:07)
[2018-05-03] MEDS ORDERED: (PENDING PHARMACY ID) (Lisinopril [Zestril] 20 MG) PO SCH (10:00)
[2018-05-03] MEDS ORDERED: NALTREXONE 50 MG PO SCH (10:00)
[2018-05-03] MEDS: DOCUSATE SODIUM 100 MG CAPSULE PO SCH ×2 (10:07→18:06)
[2018-05-03] MEDS: HYDROCHLOROTHIAZIDE 12.5 MG TABLET PO SCH (10:07)
[2018-05-03] MEDS: METOPROLOL SUCCINATE 25 MG TAB.SR.24H PO SCH (10:08)
[2018-05-03] MEDS: LISINOPRIL 10 MG TABLET PO SCH (10:09)
[2018-05-03] MEDS: PANTOPRAZOLE SODIUM 40 MG VIAL IV SCH (10:09)
[2018-05-03] MEDS: DIAZEPAM INJ 10 MG/2 ML DISP.SYRIN IV PRN ×2 (13:15→15:54)
--- NOTE | 2018-05-03 15:07 | PDOC PROGRESS REPORT ---
Subjective Progress Note for:: 05/03/18 Subjective:: ERWIN DE LA CRUZ is a 42 year old male who presented to the emergency room via EMS asking for help to stop drinking alcohol. He admits that at approximately 9 :30 PM last evening he was at home alone drinking and he had a sudden moment of realization that he absolutely had to stop drinking or he was going to . To this end he packed his bag and began walking to the emergency room. He was stopped by police on the highway where he was walking along the side of the road carrying his suitcase. When questioned by the police he told them that he needed to stop drinking alcohol and he was walking to the hospital to get help. The police contacted emergency medical services and the paramedics evaluated Erwin and then [facility] for further evaluation and treatment. In the ER he was found to be intoxicated with a blood alcohol of 350. He was observed for several hours in the emergency room and was noted to become somewhat shaky resulting in administration of Ativan and the determination that he would need help in coping with his withdrawal symptoms. Erwin admits that he has been drinking very heavily for 5-6 years. He stopped drinking for over a month up until approximately 1 week ago when he started drinking again for unknown reasons. He admits that he generally drinks at least a little bit every day, or he starts to get shaky, but at least half of the days he drinks approximately 27 ounces of vodka. He further admits that he has detoxed on his own in the past at home and during that detoxification he experienced visual hallucinations and he is certain that he had at least one seizure as he had an episode of unexplained loss of bladder and bowel control. The remainder of his emergency room evaluation was essentially unremarkable. He was therefore admitted to the ICU for acute alcohol detoxification with the plan to place him in a inpatient rehab program upon finishing detox. 05/03/2018: Erwin states that he is was feeling pretty good when he woke up this morning he rested well last night and he was not feeling shaky and even enjoyed eating some of his breakfast. He states sometime after breakfast he started having more tremulousness and that at the time of my evaluation he is feeling very tremulous and easy. He is having some problems with confusion and performing tasks utilizing higher memory functions. He has not had hallucinations or blackouts. He admits that he feels a lot better after receiving the IV Valium when he starts feeling shaky. He was happy to hear that his laboratory work was essentially unremarkable today. We will continue with the detox protocol and discharge planning has initiated a search for an inpatient alcohol rehab program that would be willing to accept Erwin after his medical detoxification. Reason For Visit: ACUTE ALCOHOL WITHDRAWEL SYNDROME WITH Physical Exam Vital Signs: Temp Pulse Resp BP Pulse Ox 97.2 F 77 18 134/89 H 95 05/03/18 08:00 05/03/18 12:00 05/03/18 12:00 05/03/18 10:11 05/03/18 12:00 Intake & Output 05/01/18 05/02/18 05/03/18 23:59 23:59 23:59 Intake Total 1751 1372 Output Total 150 2275 Balance 1601 -903 Weight 74.1 kg 76.6 kg General appearance: PRESENT: mild distress - Moderate to moderately severe tremulousness is noted, ataxic movements are noted. Patient has mental confusion and reduced ability to perform higher level memory testing at the time of this exam. The patient will be more aggressively treated by the nursing staff with Valium to help reduce these symptoms of delirium tremens. Head exam: PRESENT: atraumatic, normocephalic Eye exam: PRESENT: conjunctiva pink, EOMI. ABSENT: scleral icterus Ear exam: PRESENT: normal external ear exam. ABSENT: drainage Mouth exam: PRESENT: neck supple, other - Oral mucosa is moist and intact dentition is in good repair Neck exam: ABSENT: JVD, tracheal deviation Respiratory exam: PRESENT: clear to auscultation vinicio, symmetrical, unlabored Cardiovascular exam: PRESENT: RRR. ABSENT: clicks, gallop, rubs Vascular exam: PRESENT: normal capillary refill. ABSENT: pallor GI/Abdominal exam: PRESENT: normal bowel sounds, soft. ABSENT: tenderness Rectal exam: PRESENT: deferred Extremities exam: ABSENT: joint swelling, pedal edema Musculoskeletal exam: PRESENT: full ROM, normal inspection Neurological exam: PRESENT: alert, oriented to person, oriented to place, oriented to time, oriented to situation, ataxia, CN II-XII grossly intact. ABSENT: motor sensory deficit Psychiatric exam: PRESENT: anxious, normal mood Skin exam: PRESENT: dry, intact, warm. ABSENT: jaundice, rash, urticaria Results Laboratory Results: 05/03/18 04:01 05/03/18 04:01 05/03/18 05/03/18 05/03/18 04:01 04:01 04:01 WBC 4.2 RBC 3.88 L Hgb 12.8 L D Hct 37.6 L MCV 97 MCH 33.0 MCHC 34.1 RDW 14.3 H Plt Count 141 L Seg Neutrophils % 60.0 Lymphocytes % 31.0 Monocytes % 6.4 Eosinophils % 2.1 Basophils % 0.5 Absolute Neutrophils 2.5 Absolute Lymphocytes 1.3 Absolute Monocytes 0.3 Absolute Eosinophils 0.1 Absolute Basophils 0.0 Sodium 140.9 Potassium 4.2 Chloride 106 Carbon Dioxide 26 Anion Gap 9 BUN 7 Creatinine 0.94 Est GFR ( Amer) > 60 Est GFR (Non-Af Amer) > 60 Glucose 89 Calcium 7.9 L Magnesium 2.0 Total Bilirubin 0.8 AST 58 ALT 32 Alkaline Phosphatase 57 Ammonia Total Protein 5.7 L Albumin 3.2 L Amylase 49 Lipase 233.5 TSH 4.40 Free T4 0.69 L Free T3 pg/mL 3.09 05/03/18 05:51 WBC RBC Hgb Hct MCV MCH MCHC RDW Plt Count Seg Neutrophils % Lymphocytes % Monocytes % Eosinophils % Basophils % Absolute Neutrophils Absolute Lymphocytes Absolute Monocytes Absolute Eosinophils Absolute Basophils Sodium Potassium Chloride Carbon Dioxide Anion Gap BUN Creatinine Est GFR ( Amer) Est GFR (Non-Af Amer) Glucose Calcium Magnesium Total Bilirubin AST ALT Alkaline Phosphatase Ammonia < 8.7 L Total Protein Albumin Amylase Lipase TSH Free T4 Free T3 pg/mL Assessment & Plan - Diagnosis (1) Alcohol withdrawal Qualifiers: Complication of substance-induced condition: with unspecified complication Qualified Code(s): F10.239 - Alcohol dependence with withdrawal, unspecified Is this a current diagnosis for this admission?: Yes Plan: Patient is admitted to the ICU and will be treated with IV fluids and he will be started on a regiment of IV diazepam 10 mg every hour as needed anxiety, agitation, tremulousness, hallucinations, seizure or aggressive behavior. He will also be on a scheduled dose of Valium 10 mg p.o. every 4 hours for 12 doses. 05/03/2018: I have encouraged the ICU nursing staff to use IV diazepam more liberally to aggressively control patient's DTs. Diazepam can be given 10 mg IV every 15 minutes as needed delirium tremens symptoms. Discharge planning will be arranging for the patient to get a bed at an inpatient alcoholic rehabilitation center. (2) Alcoholism with alcohol dependence Qualifiers: Substance use status: in withdrawal Complication of substance-induced condition: with unspecified complication Qualified Code(s): F10.239 - Alcohol dependence with withdrawal, unspecified Is this a current diagnosis for this admission?: Yes Plan: Patient's alcohol withdrawal will be addressed as indicated above. After his acute detoxification he would like to be transferred to an inpatient alcohol rehab program and this will be the goal of our discharge planning efforts. (3) HTN (hypertension) Qualifiers: Hypertension type: essential hypertension Qualified Code(s): I10 - Essential (primary) hypertension Is this a current diagnosis for this admission?: Yes Plan: Patient will be continued on his usual antihypertensive regiment during his hospital course and at the time of discharge. Adjustments will only be made as required. (4) Hypothyroid Qualifiers: Hypothyroidism type: unspecified Qualified Code(s): E03.9 - Hypothyroidism , unspecified Is this a current diagnosis for this admission?: Yes Plan: Patient will be continued on his usual dose of thyroid replacement therapy throughout his hospitalization and upon discharge. A thyroid profile will be obtained to evaluate the efficacy of the patient's current therapy. - Time Time Spent with patient: 15-24 minutes Medications reviewed and adjusted accordingly: Yes Anticipated discharge: Home
[2018-05-03] MEDS: NORMAL SALINE 1000 ML 1,000 ML with POTASSIUM CHLORIDE 20 MEQ, MAGNESIUM SULFATE 8 MEQ,... IV SCH ×5 (18:07)
[2018-05-04] MEDS: HEPARIN SOD (PORCINE) 5,000 UNIT/ML 1 ML SYRINGE SUBCUT SCH ×4 (02:18→22:51)
[2018-05-04] MEDS: PANTOPRAZOLE SODIUM 40 MG VIAL IV SCH ×2 (02:19→10:31)
[2018-05-04] MEDS: DIAZEPAM 5 MG TABLET PO SCH ×6 (02:20→22:46)
[2018-05-04] MEDS: DIAZEPAM INJ 10 MG/2 ML DISP.SYRIN IV PRN (02:23)
[2018-05-04] MEDS: NORMAL SALINE 1000 ML 1,000 ML IV PRN ×2 (02:28→10:32)
[2018-05-04 04:42] LABS: ABSOLUTE EOSINOPHILS # (AUTO) 0.1 10^3/uL (0.0-0.6); ABSOLUTE MONOCYTES (AUTO) 0.3 10^3/uL (0.1-1.4); ABSOLUTE NEUT (AUTO) 3.1 10^3/uL (1.7-8.2); BASOPHILS % (AUTO) 0.6 % (0-2); EOSINOPHILS % (AUTO) 2.9 % (0-6); HEMATOCRIT 39.7 % (37.9-51.0); HEMOGLOBIN 13.5 g/dL (13.5-17.0); LYMPHOCYTES % (AUTO) 22.4 % (13-45); MEAN CORPUSCULAR HEMOGLOBIN 33.2 pg (27.0-33.4); MEAN CORPUSCULAR HGB CONC 34.1 g/dL (32.0-36.0); MEAN CORPUSCULAR VOLUME 97 fl (80-97); MONOCYTES % (AUTO) 5.7 % (3-13); PLATELET COUNT 131 10^3/uL (150-450); RED BLOOD COUNT 4.08 10^6/uL (4.35-5.55); RED CELL DISTRIBUTION WIDTH 14.2 % (11.5-14.0); SEGMENTED NEUTROPHILS % (AUTO) 68.4 % (42-78); TOTAL CELLS COUNTED % (AUTO) 100 %; WHITE BLOOD COUNT 4.6 10^3/uL (4.0-10.5)
[2018-05-04 05:01] LABS: ALANINE AMINOTRANSFERASE 33 U/L (21-72); ALBUMIN 3.5 g/dL (3.5-5.0); ALKALINE PHOSPHATASE 65 U/L (38-126); ANION GAP 10 (5-19); ASPARTATE AMINO TRANSFERASE 69 U/L (17-59); BILIRUBIN,DIRECT 0.4 mg/dL (0.0-0.4); BILIRUBIN,TOTAL 0.9 mg/dL (0.2-1.3); BLOOD UREA NITROGEN 6 mg/dL (7-20); CALCIUM 8.9 mg/dL (8.4-10.2); CARBON DIOXIDE 25 mmol/L (22-30); CHLORIDE 107 mmol/L (98-107); GLUCOSE 91 mg/dL (75-110); POTASSIUM 4.5 mmol/L (3.6-5.0); SODIUM 141.6 mmol/L (137-145); TOTAL PROTEIN 6.2 g/dL (6.3-8.2)
[2018-05-04] MEDS: LEVOTHYROXINE SODIUM 0.05 MG TABLET PO SCH (06:25)
[2018-05-04] MEDS: HYDROCHLOROTHIAZIDE 12.5 MG TABLET PO SCH (10:30)
[2018-05-04] MEDS: METOPROLOL SUCCINATE 25 MG TAB.SR.24H PO SCH (10:30)
[2018-05-04] MEDS: DOCUSATE SODIUM 100 MG CAPSULE PO SCH (10:30)
[2018-05-04] MEDS: LISINOPRIL 10 MG TABLET PO SCH (10:30)
--- NOTE | 2018-05-04 14:49 | PDOC PROGRESS REPORT ---
Subjective Progress Note for:: 05/04/18 Subjective:: ERWIN DE LA CRUZ is a 42 year old male who presented to the emergency room via EMS asking for help to stop drinking alcohol. He admits that at approximately 9 :30 PM last evening he was at home alone drinking and he had a sudden moment of realization that he absolutely had to stop drinking or he was going to . To this end he packed his bag and began walking to the emergency room. He was stopped by police on the highway where he was walking along the side of the road carrying his suitcase. When questioned by the police he told them that he needed to stop drinking alcohol and he was walking to the hospital to get help. The police contacted emergency medical services and the paramedics evaluated Erwin and then brought him to the [facility] emergency room for further evaluation and treatment. In the ER he was found to be intoxicated with a blood alcohol of 350. He was observed for several hours in the emergency room and was noted to become somewhat shaky resulting in administration of Ativan and the determination that he would need help in coping with his withdrawal symptoms. Erwin admits that he has been drinking very heavily for 5-6 years. He stopped drinking for over a month up until approximately 1 week ago when he started drinking again for unknown reasons. He admits that he generally drinks at least a little bit every day, or he starts to get shaky, but at least half of the days he drinks approximately 27 ounces of vodka. He further admits that he has detoxed on his own in the past at home and during that detoxification he experienced visual hallucinations and he is certain that he had at least one seizure as he had an episode of unexplained loss of bladder and bowel control. The remainder of his emergency room evaluation was essentially unremarkable. He was therefore admitted to the ICU for acute alcohol detoxification with the plan to place him in a inpatient rehab program upon finishing detox. 05/03/2018: Erwin states that he is was feeling pretty good when he woke up this morning he rested well last night and he was not feeling shaky and even enjoyed eating some of his breakfast. He states sometime after breakfast he started having more tremulousness and that at the time of my evaluation he is feeling very tremulous and easy. He is having some problems with confusion and performing tasks utilizing higher memory functions. He has not had hallucinations or blackouts. He admits that he feels a lot better after receiving the IV Valium when he starts feeling shaky. He was happy to hear that his laboratory work was essentially unremarkable today. We will continue with the detox protocol and discharge planning has initiated a search for an inpatient alcohol rehab program that would be willing to accept Erwin after his medical detoxification. 05/04/2018: Erwin is significantly improved today. He is markedly less tremulous and his mentation is significantly improved as he is able to complete higher memory function tests and shows no signs of confusion. He continues to be free of hallucinations or blackouts and has required significantly less Valium other than his scheduled doses for maintenance of his stability. Discharge planning has located an inpatient alcohol rehabilitation program that has offered him a back. He will be doing her prescreening process for this bed today and he will be transferred tomorrow assuming that he has been accepted. He is being downgraded from ICU to medical bed today Reason For Visit: ACUTE ALCOHOL WITHDRAWEL SYNDROME WITH Physical Exam Vital Signs: Temp Pulse Resp BP Pulse Ox 97.8 F 59 L 17 116/80 95 05/04/18 12:00 05/04/18 12:00 05/04/18 12:00 05/04/18 12:00 05/04/18 12:00 Intake & Output 05/02/18 05/03/18 05/04/18 23:59 23:59 23:59 Intake Total 1751 4515 2123 Output Total 150 4845 1700 Balance 1601 -330 423 Weight 74.1 kg 76.6 kg 75.3 kg General appearance: PRESENT: no acute distress, cooperative, other - Minimally tremulous Head exam: PRESENT: atraumatic, normocephalic Eye exam: PRESENT: conjunctiva pink, EOMI Ear exam: PRESENT: normal external ear exam. ABSENT: bleeding Mouth exam: PRESENT: neck supple, other - Oral mucosa moist and intact, dentition in fair repair Neck exam: ABSENT: JVD, thyromegaly, tracheal deviation Respiratory exam: PRESENT: clear to auscultation vinicio, symmetrical, unlabored Cardiovascular exam: PRESENT: RRR. ABSENT: clicks, gallop, rubs Vascular exam: PRESENT: normal capillary refill. ABSENT: pallor GI/Abdominal exam: PRESENT: normal bowel sounds, soft Rectal exam: PRESENT: deferred Extremities exam: ABSENT: joint swelling, pedal edema Musculoskeletal exam: PRESENT: full ROM, normal inspection Neurological exam: PRESENT: alert, oriented to person, oriented to place, oriented to time, oriented to situation, CN II-XII grossly intact, other - Minimally tremulous as previously noted. Psychiatric exam: PRESENT: appropriate affect, normal mood Skin exam: PRESENT: dry, intact, warm. ABSENT: jaundice, rash, urticaria Results Laboratory Results: 05/04/18 04:23 05/04/18 04:23 05/04/18 05/04/18 04:23 04:23 WBC 4.6 RBC 4.08 L Hgb 13.5 Hct 39.7 MCV 97 MCH 33.2 MCHC 34.1 RDW 14.2 H Plt Count 131 L Seg Neutrophils % 68.4 Lymphocytes % 22.4 Monocytes % 5.7 Eosinophils % 2.9 Basophils % 0.6 Absolute Neutrophils 3.1 Absolute Lymphocytes 1.0 Absolute Monocytes 0.3 Absolute Eosinophils 0.1 Absolute Basophils 0.0 Sodium 141.6 Potassium 4.5 Chloride 107 Carbon Dioxide 25 Anion Gap 10 BUN 6 L Creatinine 0.96 Est GFR ( Amer) > 60 Est GFR (Non-Af Amer) > 60 Glucose 91 Calcium 8.9 Magnesium 2.5 H Total Bilirubin 0.9 AST 69 H ALT 33 Alkaline Phosphatase 65 Total Protein 6.2 L Albumin 3.5 Assessment & Plan - Diagnosis (1) Alcohol withdrawal Qualifiers: Complication of substance-induced condition: with unspecified complication Qualified Code(s): F10.239 - Alcohol dependence with withdrawal, unspecified Is this a current diagnosis for this admission?: Yes Plan: Patient is admitted to the ICU and will be treated with IV fluids and he will be started on a regiment of IV diazepam 10 mg every hour as needed anxiety, agitation, tremulousness, hallucinations, seizure or aggressive behavior. He will also be on a scheduled dose of Valium 10 mg p.o. every 4 hours for 12 doses. 05/03/2018: I have encouraged the ICU nursing staff to use IV diazepam more liberally to aggressively control patient's DTs. Diazepam can be given 10 mg IV every 15 minutes as needed delirium tremens symptoms. Discharge planning will be arranging for the patient to get a bed at an inpatient alcoholic rehabilitation center. 05/04/2018: Patient will be downgraded to a regular medical bed status today. He will be continued on his scheduled diazepam 10 mg every 4 hours and will still have available intravenous diazepam 10 mg IV every 15 minutes as needed for severe delirium tremens symptoms. He will be transferred to an inpatient alcoholic rehabilitation program tomorrow if he is accepted. (2) Alcoholism with alcohol dependence Qualifiers: Substance use status: in withdrawal Complication of substance-induced condition: with unspecified complication Qualified Code(s): F10.239 - Alcohol dependence with withdrawal, unspecified Is this a current diagnosis for this admission?: Yes Plan: Patient's alcohol withdrawal will be addressed as indicated above. After his acute detoxification he would like to be transferred to an inpatient alcohol rehab program and this will be the goal of our discharge planning efforts. 05/04/2018: Patient has a bed offer at an inpatient alcoholic rehabilitation program and pending acceptance of the bed offer he will be transferred tomorrow. (3) HTN (hypertension) Qualifiers: Hypertension type: essential hypertension Qualified Code(s): I10 - Essential (primary) hypertension Is this a current diagnosis for this admission?: Yes Plan: Patient will be continued on his usual antihypertensive regiment during his hospital course and at the time of discharge. Adjustments will only be made as required. (4) Hypothyroid Qualifiers: Hypothyroidism type: unspecified Qualified Code(s): E03.9 - Hypothyroidism , unspecified Is this a current diagnosis for this admission?: Yes Plan: Patient will be continued on his usual dose of thyroid replacement therapy throughout his hospitalization and upon discharge. A thyroid profile will be obtained to evaluate the efficacy of the patient's current therapy. 05/04/2018: Patient's thyroid profile is essentially normal therefore there will be no adjustment to his current medication dosage. - Time Time Spent with patient: Less than 15 minutes Anticipated discharge: Other - Inpatient alcoholic rehabilitation program
[2018-05-05] MEDS: DIAZEPAM 5 MG TABLET PO SCH ×3 (02:30→09:06)
[2018-05-05 04:09] LABS: ABSOLUTE EOSINOPHILS # (AUTO) 0.1 10^3/uL (0.0-0.6); ABSOLUTE LYMPHOCYTES (AUTO) 1.3 10^3/uL (0.5-4.7); ABSOLUTE MONOCYTES (AUTO) 0.3 10^3/uL (0.1-1.4); ABSOLUTE NEUT (AUTO) 3.1 10^3/uL (1.7-8.2); EOSINOPHILS % (AUTO) 2.7 % (0-6); HEMATOCRIT 42.6 % (37.9-51.0); HEMOGLOBIN 14.6 g/dL (13.5-17.0); LYMPHOCYTES % (AUTO) 26.3 % (13-45); MEAN CORPUSCULAR HEMOGLOBIN 33.3 pg (27.0-33.4); MEAN CORPUSCULAR HGB CONC 34.2 g/dL (32.0-36.0); MEAN CORPUSCULAR VOLUME 97 fl (80-97); MONOCYTES % (AUTO) 6.6 % (3-13); PLATELET COUNT 123 10^3/uL (150-450); RED BLOOD COUNT 4.37 10^6/uL (4.35-5.55); RED CELL DISTRIBUTION WIDTH 14.2 % (11.5-14.0); SEGMENTED NEUTROPHILS % (AUTO) 63.4 % (42-78); TOTAL CELLS COUNTED % (AUTO) 100 %; WHITE BLOOD COUNT 4.9 10^3/uL (4.0-10.5)
[2018-05-05 04:21] LABS: ALANINE AMINOTRANSFERASE 50 U/L (21-72); ALBUMIN 4.1 g/dL (3.5-5.0); ALKALINE PHOSPHATASE 73 U/L (38-126); ASPARTATE AMINO TRANSFERASE 70 U/L (17-59); BILIRUBIN,DIRECT 0.3 mg/dL (0.0-0.4); BILIRUBIN,TOTAL 0.7 mg/dL (0.2-1.3); TOTAL PROTEIN 6.5 g/dL (6.3-8.2)
[2018-05-05] MEDS: LEVOTHYROXINE SODIUM 0.05 MG TABLET PO SCH (06:03)
[2018-05-05] MEDS: HEPARIN SOD (PORCINE) 5,000 UNIT/ML 1 ML SYRINGE SUBCUT SCH (06:04)
[2018-05-05 08:05] VITALS: BP 117/75
[2018-05-05] MEDS: HYDROCHLOROTHIAZIDE 12.5 MG TABLET PO SCH (09:06)
[2018-05-05] MEDS: LISINOPRIL 10 MG TABLET PO SCH (09:06)
[2018-05-05] MEDS: METOPROLOL SUCCINATE 25 MG TAB.SR.24H PO SCH (09:06)
--- NOTE | 2018-05-05 10:13 | PDOC TRANSFER SUMMARY ---
General Admission Date/PCP: 05/02/18 10:29 Admission Date: 05/02/18 Transfer Date: 05/05/18 Accepting Facility: Other (Comments) - [facility] Resuscitation Status: Full Code - Transfer Diagnosis (1) Alcohol withdrawal Is this a current diagnosis for this admission?: Yes Diagnosis Summary: Patient is admitted to the ICU and will be treated with IV fluids and he will be started on a regiment of IV diazepam 10 mg every hour as needed anxiety, agitation, tremulousness, hallucinations, seizure or aggressive behavior. He will also be on a scheduled dose of Valium 10 mg p.o. every 4 hours for 12 doses. 05/03/2018: I have encouraged the ICU nursing staff to use IV diazepam more liberally to aggressively control patient's DTs. Diazepam can be given 10 mg IV every 15 minutes as needed delirium tremens symptoms. Discharge planning will be arranging for the patient to get a bed at an inpatient alcoholic rehabilitation center. 05/04/2018: Patient will be downgraded to a regular medical bed status today. He will be continued on his scheduled diazepam 10 mg every 4 hours and will still have available intravenous diazepam 10 mg IV every 15 minutes as needed for severe delirium tremens symptoms. He will be transferred to an inpatient alcoholic rehabilitation program tomorrow if he is accepted. (2) Alcoholism with alcohol dependence Is this a current diagnosis for this admission?: Yes Diagnosis Summary: Patient's alcohol withdrawal will be addressed as indicated above. After his acute detoxification he would like to be transferred to an inpatient alcohol rehab program and this will be the goal of our discharge planning efforts. 05/04/2018: Patient has a bed offer at an inpatient alcoholic rehabilitation program and pending acceptance of the bed offer he will be transferred tomorrow. (3) HTN (hypertension) Is this a current diagnosis for this admission?: Yes Diagnosis Summary: Patient will be continued on his usual antihypertensive regiment during his hospital course and at the time of discharge. Adjustments will only be made as required. (4) Hypothyroid Is this a current diagnosis for this admission?: Yes Diagnosis Summary: Patient will be continued on his usual dose of thyroid replacement therapy throughout his hospitalization and upon discharge. A thyroid profile will be obtained to evaluate the efficacy of the patient's current therapy. 05/04/2018: Patient's thyroid profile is essentially normal therefore there will be no adjustment to his current medication dosage. - Transfer Medications Home Medications: Hydrochlorothiazide [Hydrodiuril 12.5 mg Tablet] 12.5 mg PO DAILY 05/02/18 Levothyroxine Sodium [Synthroid 0.05 mg Tablet] 0.05 mg PO Q6AM 05/02/18 Lisinopril [Zestril] 20 mg PO DAILY 05/02/18 Metoprolol Succinate [Toprol Xl 25 mg Tab.sr] 25 mg PO DAILY 05/02/18 Naltrexone 50 mg PO DAILY 05/02/18 Transfer Medications: Current Medications Diazepam (Valium Inj 10 Mg/2 Ml Disp.Syrin) 10 mg IV Q15MP PRN PRN Reason: WITHDRAWAL SYMPTOMS Stop: 05/09/18 17:27 Last Admin: 05/04/18 02:23 Dose: 10 mg Diazepam (Valium 5 Mg Tablet) 10 mg PO Q4 [facility] Stop: 05/09/18 11:59 Last Admin: 05/05/18 09:06 Dose: 10 mg Heparin Sodium (Porcine) (Heparin Inj 5,000 Units/Ml 1 Ml Syringe) 5,000 unit SUBCUT Q8 [facility] Stop: 06/01/18 13:59 Last Admin: 05/05/18 06:04 Dose: Not Given Hydrochlorothiazide (Hydrodiuril 12.5 Mg Tablet) 12.5 mg PO DAILY [facility] Stop: 06/02/18 09:59 Last Admin: 05/05/18 09:06 Dose: 12.5 mg Levalbuterol HCl (Xopenex Neb 1.25 Mg/3 Ml Ampul) 1.25 mg NEB [id number] PRN PRN Reason: SHORTNESS OF BREATH Stop: 06/01/18 10:07 Levothyroxine Sodium (Synthroid 0.05 Mg Tablet) 0.05 mg PO Q6AM [facility] Stop: 06/02/18 05:59 Last Admin: 05/05/18 06:03 Dose: 0.05 mg Lisinopril (Prinivil 10 Mg Tablet) 20 mg PO DAILY [facility] Stop: 06/02/18 09:59 Last Admin: 05/05/18 09:06 Dose: 20 mg Metoprolol Succinate (Toprol Xl 25 Mg Tab.Sr) 25 mg PO DAILY [facility] Stop: 06/02/18 09:59 Last Admin: 05/05/18 09:06 Dose: 25 mg Patient Own Medication (Naltrexone) 50 mg PO .DAILY [facility] Stop: 06/02/18 09:59 Sodium Chloride (Saline Flush 2.5 Ml Monoject Prefil Syrin) 2.5 ml IV Q8 [facility] Stop: 06/01/18 13:59 Last Admin: 05/05/18 06:06 Dose: 2.5 ml - Allergies Allergies/Adverse Reactions: tamsulosin HCl [From Flomax] Allergy (Verified 04/15/13 17:19) - Diet/Activity Discharge Diet: Cardiac Hospital Course Hospital Course: ERWIN DE LA CRUZ is a 42 year old male who presented to the emergency room via EMS asking for help to stop drinking alcohol. He admits that at approximately 9 :30 PM last evening he was at home alone drinking and he had a sudden moment of realization that he absolutely had to stop drinking or he was going to . To this end he packed his bag and began walking to the emergency room. He was stopped by police on the highway where he was walking along the side of the road carrying his suitcase. When questioned by the police he told them that he needed to stop drinking alcohol and he was walking to the hospital to get help. The police contacted emergency medical services and the paramedics evaluated Erwin and then brought him to the [facility] emergency room for further evaluation and treatment. In the ER he was found to be intoxicated with a blood alcohol of 350. He was observed for several hours in the emergency room and was noted to become somewhat shaky resulting in administration of Ativan and the determination that he would need help in coping with his withdrawal symptoms. Erwin admits that he has been drinking very heavily for 5-6 years. He stopped drinking for over a month up until approximately 1 week ago when he started drinking again for unknown reasons. He admits that he generally drinks at least a little bit every day, or he starts to get shaky, but at least half of the days he drinks approximately 27 ounces of vodka. He further admits that he has detoxed on his own in the past at home and during that detoxification he experienced visual hallucinations and he is certain that he had at least one seizure as he had an episode of unexplained loss of bladder and bowel control. The remainder of his emergency room evaluation was essentially unremarkable. He was therefore admitted to the ICU for acute alcohol detoxification with the plan to place him in a inpatient rehab program upon finishing detox. 05/03/2018: Erwin states that he is was feeling pretty good when he woke up this morning he rested well last night and he was not feeling shaky and even enjoyed eating some of his breakfast. He states sometime after breakfast he started having more tremulousness and that at the time of my evaluation he is feeling very tremulous and easy. He is having some problems with confusion and performing tasks utilizing higher memory functions. He has not had hallucinations or blackouts. He admits that he feels a lot better after receiving the IV Valium when he starts feeling shaky. He was happy to hear that his laboratory work was essentially unremarkable today. We will continue with the detox protocol and discharge planning has initiated a search for an inpatient alcohol rehab program that would be willing to accept Erwin after his medical detoxification. 05/04/2018: Erwin is significantly improved today. He is markedly less tremulous and his mentation is significantly improved as he is able to complete higher memory function tests and shows no signs of confusion. He continues to be free of hallucinations or blackouts and has required significantly less Valium other than his scheduled doses for maintenance of his stability. Discharge planning has located an inpatient alcohol rehabilitation program that has offered him a back. He will be doing her prescreening process for this bed today and he will be transferred tomorrow assuming that he has been accepted. He is being downgraded from ICU to medical bed today 05/05/2018: Erwin continues to do well with minimal tremulousness noted on evaluation today. He is excited about going to start treatment at the [facility]. He shows no evidence of confusion and denies hallucinations or blackouts. He has been eating and drinking well and has no nausea or vomiting. He is not having any difficulty with his eliminations and continues to be increasingly active. He has been accepted for transfer at the [facility] and he will be transferred there later today to enter into their inpatient alcoholic rehabilitation program. Physical Exam Vital Signs: Temp Pulse Resp BP Pulse Ox 97.5 F 57 L 12 117/75 95 05/05/18 08:00 05/05/18 08:00 05/05/18 08:00 05/05/18 08:00 05/05/18 08:00 Intake & Output 05/03/18 05/04/18 05/05/18 23:59 23:59 23:59 Intake Total 4515 2988 Output Total 4858 9160 Balance -330 388 Weight 76.6 kg 75.3 kg 72.4 kg General appearance: PRESENT: no acute distress, cooperative, well-developed, well-nourished Head exam: PRESENT: atraumatic, normocephalic Eye exam: PRESENT: conjunctiva pink, EOMI Ear exam: PRESENT: normal external ear exam Mouth exam: PRESENT: neck supple Neck exam: ABSENT: tracheal deviation Respiratory exam: PRESENT: clear to auscultation vinicio, symmetrical, unlabored Cardiovascular exam: PRESENT: RRR. ABSENT: bradycardia, clicks, diastolic murmur, gallop, rubs, systolic murmur, tachycardia Vascular exam: PRESENT: normal capillary refill. ABSENT: pallor GI/Abdominal exam: PRESENT: normal bowel sounds, soft Rectal exam: PRESENT: deferred Extremities exam: ABSENT: joint swelling, pedal edema Musculoskeletal exam: PRESENT: ambulatory, full ROM, normal inspection Neurological exam: PRESENT: alert, oriented to person, oriented to place, oriented to time, oriented to situation, CN II-XII grossly intact, other - Minimal tremulousness is noted.. ABSENT: ataxia, motor sensory deficit Psychiatric exam: PRESENT: appropriate affect, normal mood Skin exam: PRESENT: dry, intact, warm. ABSENT: jaundice, rash, urticaria Results Laboratory Results: 05/05/18 03:59 05/04/18 04:23 05/05/18 05/05/18 03:59 03:59 WBC 4.9 RBC 4.37 Hgb 14.6 Hct 42.6 MCV 97 MCH 33.3 MCHC 34.2 RDW 14.2 H Plt Count 123 L Seg Neutrophils % 63.4 Lymphocytes % 26.3 Monocytes % 6.6 Eosinophils % 2.7 Basophils % 1.0 Absolute Neutrophils 3.1 Absolute Lymphocytes 1.3 Absolute Monocytes 0.3 Absolute Eosinophils 0.1 Absolute Basophils 0.0 Total Bilirubin 0.7 AST 70 H ALT 50 Alkaline Phosphatase 73 Total Protein 6.5 Albumin 4.1 Plan Discharge Plan: Transfer to the [facility] for inpatient acute alcoholic rehabilitation. Time Spent: Greater than 30 Minutes
== END 2018-05-05 13:15 | DRG 897 ==
LOC: ER 01:05 → EH 10:29 → ICU 14:06
PROVIDERS: ADMIT Emergency Medicine; ATTEND Emergency Medicine
DX: F10.231 Alcohol dependence with withdrawal delirium (principal); F10.221 Alcohol dependence with intoxication delirium; Y90.8 Blood alcohol level of 240 mg/100 ml or more; I10 Essential (primary) hypertension; E03.9 Hypothyroidism, unspecified; E78.00 Pure hypercholesterolemia, unspecified; K21.9 Gastro-esophageal reflux disease without esophagitis; F32.9 Major depressive disorder, single episode, unspecified; F41.9 Anxiety disorder, unspecified; Z60.2 Problems related to living alone; Z79.899 Other long term (current) drug therapy; Z88.8 Allergy status to other drugs, medicaments and biological substances; Z83.49 Family history of other endocrine, nutritional and metabolic diseases; Z84.89 Family history of other specified conditions
CPT/HCPCS: 36415; 80048; 80053; 80076; 80307; 81001; 82140; 82150; 83036; 83690; 83735; 84439; 84443; 84481; 85025; 85610; 85730; 93005; 93010; 96365; 99291; J1644; J3360; J3411; J3475; J3480; J3490; J7030; J7050; S0164

== ENCOUNTER 2018-10-23 13:17 | Inpatient (IN) | payer BC ==
[2018-10-23 13:59] LABS: ABSOLUTE MONOCYTES (AUTO) 0.4 10^3/uL (0.1-1.4); BASOPHILS % (AUTO) 0.8 % (0-2); EOSINOPHILS % (AUTO) 0.1 % (0-6); HEMATOCRIT 44.5 % (37.9-51.0); MEAN CORPUSCULAR HGB CONC 33.7 g/dL (32.0-36.0); MEAN CORPUSCULAR VOLUME 97 fl (80-97); TOTAL CELLS COUNTED % (AUTO) 100 %
[2018-10-23 14:02] LABS: ABSOLUTE LYMPHOCYTES (AUTO) 1.4 10^3/uL (0.5-4.7); ABSOLUTE NEUT (AUTO) 3.7 10^3/uL (1.7-8.2); LYMPHOCYTES % (AUTO) 25.2 % (13-45); MEAN CORPUSCULAR HEMOGLOBIN 32.7 pg (27.0-33.4); MONOCYTES % (AUTO) 7.2 % (3-13); PLATELET COUNT 244 10^3/uL (150-450); RED CELL DISTRIBUTION WIDTH 14.8 % (11.5-14.0); SEGMENTED NEUTROPHILS % (AUTO) 66.7 % (42-78); WHITE BLOOD COUNT 5.5 10^3/uL (4.0-10.5)
[2018-10-23] MEDS: RINGERS SOLUTION,LACTATED 1,000 ML IV PRN ×2 (14:02→23:38)
[2018-10-23 14:03] LABS: INTERNATIONAL RATION (INR) 0.92; PROTHROMBIN TIME 12.8 SEC (11.4-15.4)
[2018-10-23 14:25] LABS: ALANINE AMINOTRANSFERASE 44 U/L (21-72); ALBUMIN 4.7 g/dL (3.5-5.0); ALKALINE PHOSPHATASE 63 U/L (38-126); ASPARTATE AMINO TRANSFERASE 75 U/L (17-59); BILIRUBIN,DIRECT 0.4 mg/dL (0.0-0.4); BILIRUBIN,TOTAL 0.5 mg/dL (0.2-1.3); BLOOD UREA NITROGEN 10 mg/dL (7-20); CALCIUM 9.4 mg/dL (8.4-10.2); CARBON DIOXIDE 21 mmol/L (22-30); CHLORIDE 100 mmol/L (98-107); GLUCOSE 112 mg/dL (75-110); POTASSIUM 4.6 mmol/L (3.6-5.0); TOTAL PROTEIN 7.9 g/dL (6.3-8.2)
[2018-10-23 14:31] LABS: SODIUM 142.4 mmol/L (137-145)
[2018-10-23 14:34] LABS: ANION GAP 21 (5-19)
[2018-10-23 15:03] LABS: APPEARANCE,URINE CLEAR; BILIRUBIN,URINE NEGATIVE (NEGATIVE); COLOR,URINE STRAW; GLUCOSE, URINE NEGATIVE (NEGATIVE); KETONES,URINE NEGATIVE (NEGATIVE); LEUKOCYTE ESTERASE,URINE NEGATIVE (NEGATIVE); NITRITE,URINE NEGATIVE (NEGATIVE); PROTEIN,URINE NEGATIVE (NEGATIVE); URINE SPECIFIC GRAVITY 1.002; UROBILINOGEN,URINE NEGATIVE mg/dL (<2.0)
[2018-10-23 15:22] LABS: URINE AMPHETAMINES SCREEN NEGATIVE; URINE BARBITURATES SCREEN NEGATIVE; URINE BENZODIAZEPINES SCREEN NEGATIVE; URINE COCAINE SCREEN NEGATIVE; URINE MARIJUANA (THC) SCREEN NEGATIVE; URINE METHADONE SCREEN NEGATIVE; URINE PHENCYCLIDINE SCREEN NEGATIVE
[2018-10-23] MEDS ORDERED: LORAZEPAM INJ 2 MG/1 ML VIAL IV ONE (16:57)
--- NOTE | 2018-10-23 16:57 | ER Document Report ---
ED Substance Abuse / Acc. OD - General Chief Complaint: ETOH Abuse Stated Complaint: ETOH Time Seen by Provider: 10/23/18 15:23 Notes: 43-year-old male states he wants to go through withdrawals/alcohol withdrawals. Has been drinking all day however. States that he is intoxicated but does not want to leave until he knows he is getting treatment. Denies any suicidal thoughts or suicidal ideations. Here by himself. States that his last drink was at 10 AM this morning. States that when he is is coming down off the alcohol he gets very agitated. TRAVEL OUTSIDE OF THE [place] IN LAST 30 DAYS: No - HPI Patient complains to provider of: Alcohol abuse, Alcohol withdrawal Severity: Moderate Pain Level: Denies Associated Symptoms: None - Related Data Allergies/Adverse Reactions: tamsulosin HCl [From Flomax] Allergy (Verified 04/15/13 17:19) Past Medical History - General Information source: Patient - Social History Smoking Status: Never Smoker Frequency of alcohol use: Heavy Drug Abuse: None Lives with: Family Family History: Hyperlipidemia, Thyroid Disfunction Patient has suicidal ideation: No Patient has homicidal ideation: No - Past Medical History Cardiac Medical History: Reports: Hx Hypercholesterolemia Denies: Hx Coronary Artery Disease, Hx DVT, Hx Heart Attack, Hx Hypertension, Hx Pulmonary Embolism Pulmonary Medical History: Denies: Hx Asthma, Hx COPD, Hx Tuberculosis Neurological Medical History: Reports: Hx Seizures - With alcohol withdrawal. Denies: Hx Migraine Endocrine Medical History: Reports: Hx Hypothyroidism. Denies: Hx Diabetes Mellitus Type 1, Hx Diabetes Mellitus Type 2 Renal/ Medical History: Reports: Hx Kidney Stones. Denies: Hx Peritoneal Dialysis GI Medical History: Reports: Hx Gastroesophageal Reflux Disease. Denies: Hx Crohn's Disease, Hx Ulcerative Colitis Musculoskeletal Medical History: Denies Hx Arthritis, Denies Hx Gout Skin Medical History: Denies Hx Eczema, Denies Hx Psoriasis Psychiatric Medical History: Reports: Hx Anxiety, Hx Depression - Immunizations Immunizations up to date: Yes Hx Diphtheria, Pertussis, Tetanus Vaccination: Yes Review of Systems - Review of Systems Notes: Constitutional: denies: Chills, Diaphoresis, Fever, Malaise, Weakness EENT: denies: Eye discharge, Blurred vision, Tearing, Double vision, Nose congestion, Nose discharge, Throat swelling, Mouth pain Cardiovascular: denies: Palpitations, Heart racing, Orthopnea, Dyspnea, Chest pa in Respiratory: denies: Cough, Hurts to breathe, Wheezing, Shortness of breath Gastrointestinal: denies: Abdominal pain, Diarrhea, Nausea, Vomiting, Black stools, bright red blood in stool Genitourinary: denies: Burning, Dysuria, Discharge, Frequency, Flank pain, Hematuria Musculoskeletal: denies: Joint pain, Joint swelling, Muscle pain, Muscle stiffness, back pain Hematologic/Lymphatic: denies: Anemia, Easy bleeding, Easy bruising, Blood clots Neurological/Psychological: denies: Confusion, Dementia, Depression, Loss of consciousness Skin: No lesions, no masses, no skin breakdown, no abscesses Physical Exam - Vital signs Vitals: Temp Pulse Resp BP 98.7 F 116 H 16 149/98 H 10/23/18 13:25 10/23/18 13:25 10/23/18 13:25 10/23/18 13:25 Interpretation: Normal - General General appearance: Appears well, Alert - HEENT Head: Normocephalic, Atraumatic Eyes: Normal Pupils: PERRL - Respiratory Respiratory status: No respiratory distress Chest status: Nontender Breath sounds: Normal Chest palpation: Normal - Cardiovascular Rhythm: Regular Heart sounds: Normal auscultation Murmur: No - Abdominal Inspection: Normal Distension: No distension Bowel sounds: Normal Tenderness: Nontender Organomegaly: No organomegaly - Back Back: Normal, Nontender - Extremities General upper extremity: Normal inspection, Nontender, Normal color, Normal ROM, Normal temperature General lower extremity: Normal inspection, Nontender, Normal color, Normal ROM, Normal temperature, Normal weight bearing. No: Nikita's sign - Neurological Neuro grossly intact: Yes Cognition: Normal Orientation: AAOx4 Sparks Coma Scale Eye Opening: Spontaneous Lawanda Coma Scale Verbal: Oriented Sparks Coma Scale Motor: Obeys Commands Sparks Coma Scale Total: 15 Speech: Normal Motor strength normal: LUE, RUE, LLE, RLE Sensory: Normal - Psychological Associated symptoms: Normal affect, Normal mood - Skin Skin Temperature: Warm Skin Moisture: Dry Skin Color: Normal Course - Re-evaluation Re-evalutation: 10/23/18 17:40 Laboratory 10/23/18 10/23/18 10/23/18 13:45 13:45 13:45 WBC 5.5 RBC 4.60 Hgb 15.0 Hct 44.5 MCV 97 MCH 32.7 MCHC 33.7 RDW 14.8 H Plt Count 244 Seg Neutrophils % 66.7 Lymphocytes % 25.2 Monocytes % 7.2 Eosinophils % 0.1 Basophils % 0.8 Absolute Neutrophils 3.7 Absolute Lymphocytes 1.4 Absolute Monocytes 0.4 Absolute Eosinophils 0.0 Absolute Basophils 0.0 PT 12.8 INR 0.92 Sodium 142.4 Potassium 4.6 Chloride 100 Carbon Dioxide 21 L Anion Gap 21 H BUN 10 Creatinine 1.16 Est GFR ( Amer) > 60 Est GFR (Non-Af Amer) > 60 Glucose 112 H Calcium 9.4 Total Bilirubin 0.5 Direct Bilirubin 0.4 Neonat Total Bilirubin Not Reportable Neonat Direct Bilirubin Not Reportable Neonat Indirect Bili Not Reportable AST 75 H ALT 44 Alkaline Phosphatase 63 Total Protein 7.9 Albumin 4.7 Urine Color Urine Appearance Urine pH Ur Specific Zuni Urine Protein Urine Glucose (UA) Urine Ketones Urine Blood Urine Nitrite Urine Bilirubin Urine Urobilinogen Ur Leukocyte Esterase Urine WBC (Auto) Urine RBC (Auto) Urine Ascorbic Acid Urine Opiates Screen Urine Methadone Screen Ur Barbiturates Screen Ur Phencyclidine Scrn Ur Amphetamines Screen U Benzodiazepines Scrn Urine Cocaine Screen U Marijuana (THC) Screen 10/23/18 10/23/18 14:40 14:40 WBC RBC Hgb Hct MCV MCH MCHC RDW Plt Count Seg Neutrophils % Lymphocytes % Monocytes % Eosinophils % Basophils % Absolute Neutrophils Absolute Lymphocytes Absolute Monocytes Absolute Eosinophils Absolute Basophils PT INR Sodium Potassium Chloride Carbon Dioxide Anion Gap BUN Creatinine Est GFR ( Amer) Est GFR (Non-Af Amer) Glucose Calcium Total Bilirubin Direct Bilirubin Neonat Total Bilirubin Neonat Direct Bilirubin Neonat Indirect Bili AST ALT Alkaline Phosphatase Total Protein Albumin Urine Color STRAW Urine Appearance CLEAR Urine pH 6.0 Ur Specific Zuni 1.002 Urine Protein NEGATIVE Urine Glucose (UA) NEGATIVE Urine Ketones NEGATIVE Urine Blood SMALL H Urine Nitrite NEGATIVE Urine Bilirubin NEGATIVE Urine Urobilinogen NEGATIVE Ur Leukocyte Esterase NEGATIVE Urine WBC (Auto) 0 Urine RBC (Auto) 0 Urine Ascorbic Acid NEGATIVE Urine Opiates Screen NEGATIVE Urine Methadone Screen NEGATIVE Ur Barbiturates Screen NEGATIVE Ur Phencyclidine Scrn NEGATIVE Ur Amphetamines Screen NEGATIVE U Benzodiazepines Scrn NEGATIVE Urine Cocaine Screen NEGATIVE U Marijuana (THC) Screen NEGATIVE 10/23/18 17:49 Alcohol level over 400. Patient receiving IV fluids. 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 Anticipate when alcohol level begins to drop the patient will decide he wants to go home and continue to drink. We will keep him for observation in the emergency department based on the alcohol level of 470. Currently he is on the monitor. Protecting his airway. In no acute distress. His blood pressure is within normal limits at 126/85 his heart rate is 86. His oxygen saturations are 94% on room air. - Vital Signs Vital signs: Temp Pulse Resp BP Pulse Ox 97.8 F 116 H 20 126/85 H 93 10/23/18 17:01 10/23/18 13:25 10/23/18 16:01 10/23/18 17:01 10/23/18 17:01 - Laboratory Result Diagrams: 10/23/18 13:45 10/23/18 13:45 Laboratory results interpreted by me: 10/23/18 10/23/18 10/23/18 13:45 13:45 13:45 RDW 14.8 H Carbon Dioxide 21 L Anion Gap 21 H Glucose 112 H AST 75 H Urine Blood Serum Alcohol 403 H* 10/23/18 14:40 RDW Carbon Dioxide Anion Gap Glucose AST Urine Blood SMALL H Serum Alcohol - EKG Interpretation by Me EKG shows normal: Todd, Intervals, QRS Complexes, ST-T Waves Rate: Tachycardia Discharge - Discharge Clinical Impression: Alcohol intoxication Qualifiers: Complication of substance-induced condition: uncomplicated Qualified Code(s): F10.920 - Alcohol use, unspecified with intoxication, uncomplicated Condition: Good Disposition: HOME, SELF-CARE Instructions: Acute Alcohol Intoxication ([facility]), Chronic Alcoholism ([facility]), Alcohol Withdrawl ([facility]) Additional Instructions: If you decide that you would like to quit drinking the medications that I am prescribing may help you go through the withdrawal symptoms. It is very important that you do not take this medication and drink. You will if you do this. This is very serious that you follow instructions exactly as pres cribed. If you are following the prescribed instructions on the medication and you still are feeling like you are going through withdrawals then it is very important that you return to the emergency department to be reevaluated as alcohol withdrawal is deadly. Mixing Librium and alcohol is also deadly. Please follow-up with mental health. Providers follow-up information's have been given. Prescriptions: Chlordiazepoxide HCl [Librium 25 mg Capsule] 1 cap PO QID 7 Days #30 capsule Referrals: [facility] [Provider Group] - Follow up as needed
[2018-10-23] MEDS ORDERED: DIAZEPAM 5 MG TABLET PO ONE (20:42)
--- NOTE | 2018-10-23 23:40 | EKG REPORT ---
SEVERITY:- OTHERWISE NORMAL ECG - SINUS TACHYCARDIA : Confirmed by: Andry So 23-Oct-2018 23:39:41
[2018-10-24] MEDS ORDERED: LORAZEPAM INJ 2 MG/1 ML VIAL IV ONE ×2 (07:40→11:26)
[2018-10-24 10:21] LABS: BLOOD UREA NITROGEN 13 mg/dL (7-20); CALCIUM 9.7 mg/dL (8.4-10.2); CARBON DIOXIDE 17 mmol/L (22-30); CHLORIDE 97 mmol/L (98-107); POTASSIUM 5.4 mmol/L (3.6-5.0); SODIUM 136.8 mmol/L (137-145)
[2018-10-24 10:25] LABS: ALCOHOL < 10 mg/dL (NONE DETECTED); ANION GAP 23 (5-19)
[2018-10-24 10:26] LABS: GLUCOSE 65 mg/dL (75-110)
[2018-10-24] MEDS ORDERED: MAGNESIUM HYDROXIDE SUSP 30 ML UDCUP PO PRN (11:16)
[2018-10-24] MEDS ORDERED: MAG HYDROX/AL HYDROX/SIMETH SUSP 30 ML UDCUP PO PRN (11:16)
[2018-10-24] MEDS ORDERED: ACETAMINOPHEN 325 MG TABLET PO PRN (11:16)
[2018-10-24] MEDS ORDERED: ONDANSETRON HCL INJ/PF 4 MG/2 ML SDV IV PRN (11:16)
[2018-10-24] MEDS ORDERED: ALBUTEROL SULFATE 0.083% NEB 2.5 MG/3 ML AMPUL NEB PRN (11:16)
[2018-10-24] MEDS ORDERED: METOPROLOL TARTRATE PF/INJ 5 MG/5 ML SDV IV PRN (11:29)
[2018-10-24] MEDS ORDERED: DIAZEPAM 5 MG TABLET PO SCH (12:00)
[2018-10-24] MEDS: DIAZEPAM 5 MG TABLET PO SCH ×3 (12:01→23:07)
[2018-10-24] MEDS: LORAZEPAM INJ 2 MG/1 ML VIAL IV PRN ×4 (12:22→23:07)
[2018-10-24] MEDS: HEPARIN SOD (PORCINE) 5,000 UNIT/ML 1 ML SYRINGE SUBCUT SCH ×2 (13:02→21:08)
[2018-10-24] MEDS: NORMAL SALINE 1000 ML 1,000 ML IV PRN ×2 (16:27→23:06)
--- NOTE | 2018-10-24 17:05 | PSYCHOLOGICAL NOTE ---
Psych Note - Psych Note Date seen by psych provider: 10/24/18 Time seen by psych provider: 07:20 Psych Note: Reason for Consult: Detox Patient discloses that he had a bed at the [facility] however they could not provide transportation. He reports that on the end of April he went for 28 days and confirms he did quickly relapse but was able to obtain sobriety again. He disclosed that "yesterday I was out of it" when he called the treatment center and that now he is starting to think that it might not be the right decision. He is concerned that he is good to get further behind in his bills and currently does not have any vacation time left with his job. He reports that he does use AA for additional assistance however the other day his ex- got him upset. Patient asked "how many times to take for me to go through this before I get it through my mind not to drink?" Patient discloses that he does have a stressful job and normally he would go for run instead of drinking but he "just reached for the alcohol." Patient reports that he is interested in sobriety but he has to go home to "get my stuff together before leaving again for another 30 days." Patient is alert and orientated to person, place, time and circumstance. Mood is dysphoric with tearful affect. Patient denies homicidal and suicidal ideation. Delusions are absent behaviors congruent with intact reality based presentation i.e. organized and linear thought process. Eye contact is fair. Intellectual abilities appear to be within the average range. Attention and concentration are fair. Insight, judgment, impulse control are fair. Medication recommendations at this time 303.00 (F10.229) alcohol intoxication with use disorder; severe Impression\\plan: Patient is cleared from acute psychiatric services. Patient came to [facility] for assistance in detoxing. Patient did have a confirmed bed at the [facility] however they were unable to assist in transporting him there so he came to the hospital instead. Patient e ngaged appropriately with clinician and disclosed concern that returning to the [facility] may not be in his best interest as he just went in the April timeframe for 28 days. Patient also discusses concern of missing work and states that he quickly relapsed after going to detox last time. Patient was provided information on the [facility] addiction [facility] and is highly encouraged to seek residential rehab for higher level of assistance to maintain sobriety after his [facility] stay for detox. If patient would like assistance in the screening process for the [facility] addiction center please contact the behavioral health team. Dr. Nichole was consulted to care management of this patient; attending physicians in agreement with recommendations and disposition.
--- NOTE | 2018-10-24 18:18 | PDOC H&P ---
History of Present Illness Admission Date/PCP: 10/24/18 10:44 History of Present Illness: CHANNING DE LA CRUZ is a 43 year old male with a past medical history significant for hypothyroidism, hypertension, GERD, and alcohol dependence who presented to the emergency department today requesting assistance with alcohol detoxification. 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 Evaluation by the emergency department provider revealed sinus tachycardia, elevated serum EtOH (403), and dehydration (sodium 136, potassium 5.4, bicarb 17, anion gap 23, creatinine 1.29). He is referred to the hospitalist service for admission and management of the above-stated complaints. Past Medical History Cardiac Medical History: Reports: Hyperlipidema Pulmonary Medical History: Reports: None EENT Medical History: Reports: None Neurological Medical History: Reports: Seizures - With alcohol withdrawal Denies: Migraine Endocrine Medical History: Reports: Hypothyroidism Denies: Diabetes Mellitus Type 1, Diabetes Mellitus Type 2 Renal/ Medical History: Reports: None Malignancy Medical History: Reports: None GI Medical History: Reports: Gastroesophageal Reflux Disease Denies: Crohn's Disease, Ulcerative Colitis Musculoskeltal Medical History: Reports: None Skin Medical History: Reports: None Psychiatric Medical History: Reports: Alcohol Dependency, Depression Traumatic Medical History: Reports: None Hematology: Reports: None Infectious Medical History: Reports: None Past Surgical History Past Surgical History: Reports: None Social History Information Source: Patient, Relative Lives with: Parents Smoking Status: Never Smoker Frequency of Alcohol Use: Heavy Hx Recreational Drug Use: No Drugs: None Hx Prescription Drug Abuse: No - Advance Directive Resuscitation Status: Full Code Family History Family History: Hyperlipidemia, Thyroid Disfunction Parental Family History Reviewed: Yes Children Family History Reviewed: Yes Sibling(s) Family History Reviewed.: Yes Medication/Allergy Home Medications: Levothyroxine Sodium [Synthroid 0.05 mg Tablet] 0.05 mg PO Q6AM 10/24/18 Lisinopril [Prinivil] 20 mg PO QAM 10/24/18 Allergies/Adverse Reactions: tamsulosin HCl [From Flomax] Allergy (Verified 04/15/13 17:19) Review of Systems Constitutional: PRESENT: headache(s), night sweats. ABSENT: chills, fever(s), weight gain, weight loss Eyes: ABSENT: visual disturbances Ears: ABSENT: hearing changes Cardiovascular: ABSENT: chest pain, dyspnea on exertion, edema, orthropnea, palpitations Respiratory: ABSENT: cough, hemoptysis Gastrointestinal: PRESENT: heartburn. ABSENT: abdominal pain, constipation, diarrhea, hematemesis, hematochezia, nausea, vomiting Genitourinary: ABSENT: dysuria, hematuria Musculoskeletal: ABSENT: joint swelling Integumentary: ABSENT: rash, wounds Neurological: PRESENT: tremor(s). ABSENT: abnormal gait, abnormal speech, confusion, dizziness, focal weakness, syncope Psychiatric: ABSENT: anxiety, depression, homidical ideation, suicidal ideation Endocrine: ABSENT: cold intolerance, heat intolerance, polydipsia, polyuria Hematologic/Lymphatic: ABSENT: easy bleeding, easy bruising Physical Exam Vital Signs: Temp Pulse Resp BP Pulse Ox 98.8 F 107 H 18 147/93 H 96 10/24/18 12:20 10/24/18 14:00 10/24/18 12:20 10/24/18 12:20 10/24/18 12:20 Intake & Output 10/23/18 10/24/18 10/25/18 06:59 06:59 06:59 Intake Total 1999 Balance 2000 Weight 74.8 kg 73.3 kg General appearance: PRESENT: no acute distress, cooperative, well-developed, well-nourished Head exam: PRESENT: atraumatic, normocephalic Eye exam: PRESENT: conjunctiva pink, EOMI, PERRLA. ABSENT: scleral icterus Ear exam: PRESENT: normal external ear exam Mouth exam: PRESENT: moist, tongue midline Neck exam: ABSENT: carotid bruit, JVD, lymphadenopathy, thyromegaly Respiratory exam: PRESENT: clear to auscultation vinicio, symmetrical, unlabored. ABSENT: rales, rhonchi, wheezes Cardiovascular exam: PRESENT: RRR, +S1, +S2. ABSENT: diastolic murmur, rubs, systolic murmur Pulses: PRESENT: normal dorsalis pedis pul Vascular exam: PRESENT: normal capillary refill GI/Abdominal exam: PRESENT: normal bowel sounds, soft. ABSENT: distended, guarding, mass, organolmegaly, rebound, tenderness Rectal exam: PRESENT: deferred Extremities exam: PRESENT: full ROM. ABSENT: calf tenderness, clubbing, pedal edema Neurological exam: PRESENT: alert, awake, oriented to person, oriented to place, oriented to time, oriented to situation, CN II-XII grossly intact, other - Diaphoretic, tremulous. ABSENT: motor sensory deficit Psychiatric exam: PRESENT: appropriate affect, normal mood. ABSENT: homicidal ideation, suicidal ideation Skin exam: PRESENT: dry, intact, warm. ABSENT: cyanosis, rash Results Laboratory Results: 10/23/18 13:45 10/24/18 09:53 10/24/18 09:53 Sodium 136.8 L Potassium 5.4 H Chloride 97 L Carbon Dioxide 17 L Anion Gap 23 H BUN 13 Creatinine 1.29 H Est GFR ( Amer) > 60 Est GFR (Non-Af Amer) > 60 Glucose 65 L Calcium 9.7 Assessment and Plan - Diagnosis (1) Alcohol withdrawal Qualifiers: Complication of substance-induced condition: with unspecified complication Qualified Code(s): F10.239 - Alcohol dependence with withdrawal, unspecified Is this a current diagnosis for this admission?: Yes Plan: The patient is admitted to [facility] on continuous cardiac telemetry. He is provided scheduled Valium 20 mg every 6 hours. IV Ativan 2 mg every 2 hours as needed for anxiety/agitation/withdrawal symptoms. Fall, aspiration, seizure precautions. (2) Alcoholism with alcohol dependence Qualifiers: Substance use status: in withdrawal Is this a current diagnosis for this admission?: Yes Plan: Serum EtOH on presentation to the emergency department yesterday afternoon is 403. Serum alcohol this morning is negative; patient is already demonstrating evidence of withdrawal. Management as above. community planner and mental health services are consulted. Start daily multivitamin, thiamine, and folic acid supplementation. (3) HTN (hypertension) Qualifiers: Is this a current diagnosis for this admission?: Yes Plan: Continue home dose lisinopril. IV Lopressor as needed for blood pressure control. (4) Hypothyroid Qualifiers: Is this a current diagnosis for this admission?: Yes Plan: Continue home dose Synthroid. (5) Dehydration Is this a current diagnosis for this admission?: Yes Plan: Start generous IV maintenance fluids. Encourage p.o. fluids. Avoid nephrotoxic medications as able. Daily chemistry. - Time Time Spent with patient: 35 or more minutes Medications reviewed and adjusted accordingly: Yes Anticipated discharge: Home - Inpatient Certification Based on my medical assessment, after consideration of the patient's comorbidities, presenting symptoms, or acuity I expect that the services needed warrant INPATIENT care.: Yes I certify that my determination is in accordance with my understanding of Medicare's requirements for reasonable and necessary INPATIENT services [42 CFR 412.3e].: Yes Medical Necessity: Need Close Monitoring Due to Risk of Patient Decompensation, Need For IV Fluids, Need For Continuous Telemetry Monitoring, Risk of Complication if Not Cared For in Hospital
[2018-10-25] MEDS: LORAZEPAM INJ 2 MG/1 ML VIAL IV PRN ×7 (01:20→19:58)
[2018-10-25 05:04] LABS: HEMATOCRIT 37.8 % (37.9-51.0); MEAN CORPUSCULAR HEMOGLOBIN 33.1 pg (27.0-33.4); MEAN CORPUSCULAR HGB CONC 33.8 g/dL (32.0-36.0); MEAN CORPUSCULAR VOLUME 98 fl (80-97); PLATELET COUNT 157 10^3/uL (150-450); RED BLOOD COUNT 3.86 10^6/uL (4.35-5.55); RED CELL DISTRIBUTION WIDTH 14.4 % (11.5-14.0); WHITE BLOOD COUNT 3.6 10^3/uL (4.0-10.5)
[2018-10-25 05:10] LABS: HEMOGLOBIN 12.8 g/dL (13.5-17.0)
[2018-10-25 05:13] LABS: ALANINE AMINOTRANSFERASE 37 U/L (21-72); ALBUMIN 3.5 g/dL (3.5-5.0); ALKALINE PHOSPHATASE 50 U/L (38-126); ASPARTATE AMINO TRANSFERASE 51 U/L (17-59); BILIRUBIN,DIRECT 0.3 mg/dL (0.0-0.4); BILIRUBIN,TOTAL 0.8 mg/dL (0.2-1.3); BLOOD UREA NITROGEN 12 mg/dL (7-20); CALCIUM 9.1 mg/dL (8.4-10.2); GLUCOSE 96 mg/dL (75-110); PHOSPHORUS 2.9 mg/dL (2.5-4.5); TOTAL PROTEIN 6.1 g/dL (6.3-8.2)
[2018-10-25 05:22] LABS: ANION GAP 12 (5-19); CARBON DIOXIDE 24 mmol/L (22-30); CHLORIDE 102 mmol/L (98-107); SODIUM 138.1 mmol/L (137-145)
[2018-10-25 05:34] LABS: POTASSIUM 4.3 mmol/L (3.6-5.0)
[2018-10-25] MEDS: DIAZEPAM 5 MG TABLET PO SCH ×3 (05:41→17:21)
[2018-10-25] MEDS: LEVOTHYROXINE SODIUM 0.05 MG TABLET PO SCH (05:41)
[2018-10-25] MEDS: NORMAL SALINE 1000 ML 1,000 ML IV PRN ×3 (05:42→21:02)
[2018-10-25] MEDS: HEPARIN SOD (PORCINE) 5,000 UNIT/ML 1 ML SYRINGE SUBCUT SCH ×3 (06:04→21:01)
[2018-10-25] MEDS ORDERED: (PENDING PHARMACY ID) (Lisinopril [Prinivil] 20 MG) PO SCH (08:00)
[2018-10-25] MEDS: PROMETHAZINE HCL INJ 25 MG/1 ML VIAL IV PRN ×2 (08:08→15:54)
[2018-10-25] MEDS: LISINOPRIL 10 MG TABLET PO SCH (08:12)
[2018-10-25] MEDS: FOLIC ACID 1 MG TABLET PO SCH (11:59)
[2018-10-25] MEDS: MULTIVITAMIN TABLET PO SCH (12:00)
[2018-10-25] MEDS: DOCUSATE SODIUM 100 MG CAPSULE PO SCH (12:00)
[2018-10-25] MEDS: THIAMINE HCL 100 MG TABLET PO SCH (12:00)
[2018-10-25] MEDS: PANTOPRAZOLE SODIUM 40 MG VIAL IV SCH (12:00)
--- NOTE | 2018-10-25 12:45 | PDOC PROGRESS REPORT ---
Subjective Progress Note for:: 10/25/18 Subjective:: CHANNING DE LA CRUZ is a 43 year old male with a past medical history significant for hypothyroidism, hypertension, GERD, and alcohol dependence who was admitted 10/24/2018 for alcohol withdrawal. He was seen on morning rounds with his mother present. He states that he is feeling well today; did have some muscle cramps last night but otherwise is improved. He denies fever, chills, chest pain, palpitations, dyspnea, orthopnea, cough, abdominal pain, nausea vomiting diarrhea, visual/auditory/tactile hallucinations. They have no questions or concerns at this time. No concerns per nursing. Reason For Visit: ETOH WITHDRAWAL Physical Exam Vital Signs: Temp Pulse Resp BP Pulse Ox 98.6 F 84 16 142/91 H 96 10/25/18 07:41 10/25/18 07:41 10/25/18 07:41 10/25/18 07:41 10/25/18 07:41 Intake & Output 10/24/18 10/25/18 10/26/18 06:59 06:59 06:59 Intake Total 1999 2200 Output Total 300 Balance 1999 1900 Weight 74.8 kg 75.8 kg General appearance: PRESENT: no acute distress, cooperative, well-developed, wel l-nourished Head exam: PRESENT: atraumatic, normocephalic Eye exam: PRESENT: conjunctiva pink, EOMI, PERRLA. ABSENT: scleral icterus Ear exam: PRESENT: normal external ear exam Mouth exam: PRESENT: moist, tongue midline Neck exam: ABSENT: carotid bruit, JVD, lymphadenopathy, thyromegaly Respiratory exam: PRESENT: clear to auscultation vinicio. ABSENT: rales, rhonchi, wheezes Cardiovascular exam: PRESENT: RRR. ABSENT: diastolic murmur, rubs, systolic murmur Pulses: PRESENT: normal dorsalis pedis pul Vascular exam: PRESENT: normal capillary refill GI/Abdominal exam: PRESENT: normal bowel sounds, soft. ABSENT: distended, guarding, mass, organolmegaly, rebound, tenderness Rectal exam: PRESENT: deferred Extremities exam: PRESENT: full ROM. ABSENT: calf tenderness, clubbing, pedal edema Neurological exam: PRESENT: alert, awake, oriented to person, oriented to place, oriented to time, oriented to situation, CN II-XII grossly intact, other - Tremulous. ABSENT: motor sensory deficit Psychiatric exam: PRESENT: appropriate affect, normal mood. ABSENT: homicidal ideation, suicidal ideation Skin exam: PRESENT: dry, intact, warm. ABSENT: cyanosis, rash Results Laboratory Results: 10/25/18 04:21 10/25/18 04:21 10/25/18 10/25/18 04:21 04:21 WBC 3.6 L RBC 3.86 L Hgb 12.8 L D Hct 37.8 L MCV 98 H MCH 33.1 MCHC 33.8 RDW 14.4 H Plt Count 157 Sodium 138.1 Potassium 4.3 D Chloride 102 Carbon Dioxide 24 Anion Gap 12 BUN 12 Creatinine 1.03 Est GFR ( Amer) > 60 Est GFR (Non-Af Amer) > 60 Glucose 96 Calcium 9.1 Phosphorus 2.9 Magnesium 1.8 Total Bilirubin 0.8 AST 51 ALT 37 Alkaline Phosphatase 50 Total Protein 6.1 L Albumin 3.5 Assessment and Plan - Diagnosis (1) Alcohol withdrawal Qualifiers: Complication of substance-induced condition: with unspecified complication Qualified Code(s): F10.239 - Alcohol dependence with withdrawal, unspecified Is this a current diagnosis for this admission?: Yes Plan: The patient is admitted to [facility] on continuous cardiac telemetry. He is provided scheduled Valium 20 mg every 6 hours. IV Ativan 2 mg every 2 hours as needed for anxiety/agitation/withdrawal symptoms. Patient has required 16 mg of IV Ativan over the last 24 hours. Fall, aspiration, seizure precautions. Discharge planning is consulted. (2) Alcoholism with alcohol dependence Qualifiers: Substance use status: in withdrawal Is this a current diagnosis for this admission?: Yes Plan: Serum EtOH on presentation to the emergency department yesterday afternoon is 403. Serum alcohol this morning is negative; patient is already demonstrating evidence of withdrawal. Management as above. production control planner and mental health services are consulted. Continue daily multivitamin, thiamine, and folic acid supplementation. (3) HTN (hypertension) Qualifiers: Is this a current diagnosis for this admission?: Yes Plan: Continue home dose lisinopril. IV Lopressor as needed for blood pressure control. (4) Hypothyroid Qualifiers: Is this a current diagnosis for this admission?: Yes Plan: Continue home dose Synthroid. (5) Dehydration Is this a current diagnosis for this admission?: Yes Plan: Improved. Continue IV maintenance fluids. Encourage p.o. fluids. Avoid nephrotoxic medications as able. Daily chemistry. - Time Time Spent with patient: 15-24 minutes Medications reviewed and adjusted accordingly: Yes Anticipated discharge: Home Within: Other - 4-5 days
[2018-10-25] MEDS ORDERED: LORAZEPAM INJ 2 MG/1 ML VIAL IV ONE (14:30)
[2018-10-26] MEDS: DIAZEPAM 5 MG TABLET PO SCH ×4 (00:29→17:56)
[2018-10-26 04:56] LABS: HEMATOCRIT 37.8 % (37.9-51.0); HEMOGLOBIN 12.7 g/dL (13.5-17.0); MEAN CORPUSCULAR HEMOGLOBIN 33.3 pg (27.0-33.4); MEAN CORPUSCULAR HGB CONC 33.7 g/dL (32.0-36.0); MEAN CORPUSCULAR VOLUME 99 fl (80-97); PLATELET COUNT 144 10^3/uL (150-450); RED BLOOD COUNT 3.83 10^6/uL (4.35-5.55); RED CELL DISTRIBUTION WIDTH 14.6 % (11.5-14.0); WHITE BLOOD COUNT 3.5 10^3/uL (4.0-10.5)
[2018-10-26] MEDS: HEPARIN SOD (PORCINE) 5,000 UNIT/ML 1 ML SYRINGE SUBCUT SCH ×3 (05:03→21:58)
[2018-10-26] MEDS: LEVOTHYROXINE SODIUM 0.05 MG TABLET PO SCH (05:16)
[2018-10-26 05:17] LABS: ALANINE AMINOTRANSFERASE 53 U/L (21-72); ALBUMIN 3.8 g/dL (3.5-5.0); ALKALINE PHOSPHATASE 52 U/L (38-126); ANION GAP 12 (5-19); ASPARTATE AMINO TRANSFERASE 110 U/L (17-59); BILIRUBIN,DIRECT 0.4 mg/dL (0.0-0.4); BILIRUBIN,TOTAL 0.7 mg/dL (0.2-1.3); BLOOD UREA NITROGEN 7 mg/dL (7-20); CALCIUM 9.2 mg/dL (8.4-10.2); CARBON DIOXIDE 24 mmol/L (22-30); CHLORIDE 104 mmol/L (98-107); GLUCOSE 93 mg/dL (75-110); TOTAL PROTEIN 6.2 g/dL (6.3-8.2)
[2018-10-26] MEDS: LORAZEPAM INJ 2 MG/1 ML VIAL IV PRN (05:20)
[2018-10-26] MEDS: FOLIC ACID 1 MG TABLET PO SCH (09:08)
[2018-10-26] MEDS: LISINOPRIL 10 MG TABLET PO SCH (09:08)
[2018-10-26] MEDS: MULTIVITAMIN TABLET PO SCH (09:08)
[2018-10-26] MEDS: THIAMINE HCL 100 MG TABLET PO SCH (09:08)
[2018-10-26] MEDS: PANTOPRAZOLE SODIUM 40 MG VIAL IV SCH (09:09)
[2018-10-26] MEDS: DOCUSATE SODIUM 100 MG CAPSULE PO SCH (09:09)
[2018-10-26] MEDS: NORMAL SALINE 1000 ML 1,000 ML IV PRN (10:47)
--- NOTE | 2018-10-26 13:21 | PDOC PROGRESS REPORT ---
Subjective Progress Note for:: 10/26/18 Subjective:: CHANNING DE LA CRUZ is a 43 year old male with a past medical history significant for hypothyroidism, hypertension, GERD, and alcohol dependence who was admitted 10/24/2018 for alcohol withdrawal. He was seen on morning rounds. He states that he is feeling better today. He denies fever, chills, chest pain, palpitations, dyspnea, orthopnea, cough, abdominal pain, nausea vomiting diarrhea, visual/auditory/tactile hallucinations. He has no questions or concerns at this time. No concerns per nursing. Reason For Visit: ETOH WITHDRAWAL Physical Exam Vital Signs: Temp Pulse Resp BP Pulse Ox 98.4 F 66 16 141/95 H 97 10/26/18 11:34 10/26/18 11:34 10/26/18 11:34 10/26/18 11:34 10/26/18 11:34 Intake & Output 10/25/18 10/26/18 10/27/18 06:59 06:59 06:59 Intake Total 2200 2130 1100 Output Total 300 600 Balance 1900 1530 1100 Weight 75.8 kg 76.2 kg General appearance: PRESENT: no acute distress, cooperative, well-developed, well-nourished Head exam: PRESENT: atraumatic, normocephalic Eye exam: PRESENT: conjunctiva pink, EOMI, PERRLA. ABSENT: scleral icterus Ear exam: PRESENT: normal external ear exam Mouth exam: PRESENT: moist, tongue midline Neck exam: ABSENT: carotid bruit, JVD, lymphadenopathy, thyromegaly Respiratory exam: PRESENT: clear to auscultation vinicio. ABSENT: rales, rhonchi, wheezes Cardiovascular exam: PRESENT: RRR. ABSENT: diastolic murmur, rubs, systolic murmur Pulses: PRESENT: normal dorsalis pedis pul Vascular exam: PRESENT: normal capillary refill GI/Abdominal exam: PRESENT: normal bowel sounds, soft. ABSENT: distended, guar ding, mass, organolmegaly, rebound, tenderness Rectal exam: PRESENT: deferred Extremities exam: PRESENT: full ROM. ABSENT: calf tenderness, clubbing, pedal edema Neurological exam: PRESENT: alert, awake, oriented to person, oriented to place, oriented to time, oriented to situation, CN II-XII grossly intact, other - slight tremor. ABSENT: motor sensory deficit Psychiatric exam: PRESENT: appropriate affect, normal mood. ABSENT: homicidal ideation, suicidal ideation Skin exam: PRESENT: dry, intact, warm. ABSENT: cyanosis, rash Results Laboratory Results: 10/26/18 04:16 10/26/18 04:16 10/26/18 10/26/18 04:16 04:16 WBC 3.5 L RBC 3.83 L Hgb 12.7 L Hct 37.8 L MCV 99 H MCH 33.3 MCHC 33.7 RDW 14.6 H Plt Count 144 L Sodium 140.0 Potassium 4.0 Chloride 104 Carbon Dioxide 24 Anion Gap 12 BUN 7 Creatinine 0.79 Est GFR ( Amer) > 60 Est GFR (Non-Af Amer) > 60 Glucose 93 Calcium 9.2 Total Bilirubin 0.7 AST 110 H ALT 53 Alkaline Phosphatase 52 Total Protein 6.2 L Albumin 3.8 Assessment and Plan - Diagnosis (1) Alcohol withdrawal Qualifiers: Complication of substance-induced condition: with unspecified complication Qualified Code(s): F10.239 - Alcohol dependence with withdrawal, unspecified Is this a current diagnosis for this admission?: Yes Plan: The patient is admitted to [facility] on continuous cardiac telemetry. He is provided scheduled Valium every 6 hours; will decrease scheduled dose slightly today (20->15mg q6h). IV Ativan 2 mg every 2 hours as needed for anxiety/agitation/withdrawal symptoms. Fall, aspiration, seizure precautions. Discharge planning is consulted. (2) Alcoholism with alcohol dependence Qualifiers: Substance use status: in withdrawal Is this a current diagnosis for this admission?: Yes Plan: Serum EtOH on presentation to the emergency department yesterday afternoon is 403. Serum alcohol this morning is negative; patient is already demonstrating evidence of withdrawal. Management as above. program services planner and mental health services are consulted. Continue daily multivitamin, thiamine, and folic acid supplementation. (3) HTN (hypertension) Qualifiers: Is this a current diagnosis for this admission?: Yes Plan: Continue home dose lisinopril. Cardiac diet. IV Lopressor as needed for blood pressure control. (4) Hypothyroid Qualifiers: Is this a current diagnosis for this admission?: Yes Plan: Continue home dose Synthroid. (5) Dehydration Is this a current diagnosis for this admission?: Yes Plan: Resolved. Encourage p.o. fluids. Avoid nephrotoxic medications as able. Daily chemistry. - Time Time Spent with patient: 15-24 minutes Medications reviewed and adjusted accordingly: Yes Anticipated discharge: Home
[2018-10-27] MEDS: DIAZEPAM 5 MG TABLET PO SCH ×3 (00:03→17:16)
[2018-10-27] MEDS: HEPARIN SOD (PORCINE) 5,000 UNIT/ML 1 ML SYRINGE SUBCUT SCH ×3 (05:08→22:07)
[2018-10-27] MEDS: LEVOTHYROXINE SODIUM 0.05 MG TABLET PO SCH (05:32)
[2018-10-27] MEDS: DOCUSATE SODIUM 100 MG CAPSULE PO SCH (10:57)
[2018-10-27] MEDS: MULTIVITAMIN TABLET PO SCH (10:57)
[2018-10-27] MEDS: FOLIC ACID 1 MG TABLET PO SCH (10:57)
[2018-10-27] MEDS: THIAMINE HCL 100 MG TABLET PO SCH (10:57)
[2018-10-27] MEDS: LISINOPRIL 10 MG TABLET PO SCH (10:58)
[2018-10-27] MEDS: PANTOPRAZOLE SODIUM 40 MG VIAL IV SCH (10:58)
[2018-10-27] MEDS ORDERED: DIAZEPAM 5 MG TABLET PO SCH ×2 (12:00→18:00)
--- NOTE | 2018-10-27 15:03 | PDOC PROGRESS REPORT ---
Subjective Progress Note for:: 10/27/18 Subjective:: CHANNING DE LA CRUZ is a 43 year old male with a past medical history significant for hypothyroidism, hypertension, GERD, and alcohol dependence who was admitted 10/24/2018 for alcohol withdrawal. He was seen on morning rounds. He states that he is feeling better today. He denies fever, chills, chest pain, palpitations, dyspnea, orthopnea, cough, abdominal pain, nausea vomiting diarrhea, visual/auditory/tactile hallucinations. He has no questions or concerns at this time; requests to be discharged home tomorrow. Patient is advised that we are weaning his valium as tolerated and discharge is anticipated for Sunday at this time. No concerns per nursing. Reason For Visit: ETOH WITHDRAWAL Physical Exam Vital Signs: Temp Pulse Resp BP Pulse Ox 97.7 F 76 16 123/86 H 94 10/27/18 11:58 10/27/18 11:58 10/27/18 11:58 10/27/18 11:58 10/27/18 11:58 Intake & Output 10/26/18 10/27/18 10/28/18 06:59 06:59 06:59 Intake Total 2130 1973 518 Output Total 600 Balance 1530 1973 518 Weight 76.2 kg 74.5 kg General appearance: PRESENT: no acute distress, well-developed, well-nourished - overweight Head exam: PRESENT: atraumatic, normocephalic Eye exam: PRESENT: conjunctiva pink, EOMI, PERRLA. ABSENT: scleral icterus Ear exam: PRESENT: normal external ear exam Mouth exam: PRESENT: moist, tongue midline Neck exam: ABSENT: carotid bruit, JVD, lymphadenopathy, thyromegaly Respiratory exam: PRESENT: clear to auscultation vinicio. ABSENT: rales, rhonchi, wheezes Cardiovascular exam: PRESENT: RRR. ABSENT: diastolic murmur, rubs, systolic murmur Pulses: PRESENT: normal dorsalis pedis pul Vascular exam: PRESENT: normal capillary refill GI/Abdominal exam: PRESENT: normal bowel sounds, soft. ABSENT: distended, guarding, mass, organolmegaly, rebound, tenderness Rectal exam: PRESENT: deferred Extremities exam: PRESENT: full ROM. ABSENT: calf tenderness, clubbing, pedal edema Neurological exam: PRESENT: alert, awake, oriented to person, oriented to place, oriented to time, oriented to situation, CN II-XII grossly intact, other - Somewhat repetitive in conversation today; tremulous. ABSENT: motor sensory deficit Psychiatric exam: PRESENT: agitated, appropriate affect, normal mood. ABSENT: homicidal ideation, suicidal ideation Skin exam: PRESENT: dry, intact, warm. ABSENT: cyanosis, rash Results Laboratory Results: 10/26/18 04:16 10/26/18 04:16 Assessment and Plan - Diagnosis (1) Alcohol withdrawal Qualifiers: Complication of substance-induced condition: with unspecified complication Qualified Code(s): F10.239 - Alcohol dependence with withdrawal, unspecified Is this a current diagnosis for this admission?: Yes Plan: The patient is admitted to [facility] on continuous cardiac telemetry. He is provided scheduled Valium every 6 hours; will decrease scheduled dose again today (20-> 15-> 7 mg q6h). IV Ativan 2 mg every 2 hours as needed for anxiety/agitation/withdrawal symptoms; has only required 2 mg/24 hrs. Fall, aspiration, seizure precautions. Discharge planning is consulted. (2) Alcoholism with alcohol dependence Qualifiers: Substance use status: in withdrawal Is this a current diagnosis for this admission?: Yes Plan: Serum EtOH on presentation to the emergency department was 403. The following morning, serum alcohol was negative and patient already demonstrating evidence of withdrawal. Management as above. environmental restoration planner and mental health services are consulted. Continues to decline inpatient services; states "I know that drinkers probably say it all the time, but I just have important things I need to do." Continue daily multivitamin, thiamine, and folic acid supplementation. (3) HTN (hypertension) Qualifiers: Is this a current diagnosis for this admission?: Yes Plan: Continue home dose lisinopril. Cardiac diet. IV Lopressor as needed for blood pressure control. (4) Hypothyroid Qualifiers: Is this a current diagnosis for this admission?: Yes Plan: Continue home dose Synthroid. (5) Dehydration Is this a current diagnosis for this admission?: Yes Plan: Resolved. Encourage p.o. fluids. Avoid nephrotoxic medications as able. Daily chemistry. - Time Time Spent with patient: 15-24 minutes Medications reviewed and adjusted accordingly: Yes Anticipated discharge: Home Within: within 48 hours
[2018-10-27] MEDS: DIAZEPAM 2 MG TABLET PO SCH (17:16)
[2018-10-27] MEDS ORDERED: DIAZEPAM 2 MG TABLET PO SCH (18:00)
[2018-10-28] MEDS: DIAZEPAM 5 MG TABLET PO SCH ×2 (00:06→05:48)
[2018-10-28] MEDS: DIAZEPAM 2 MG TABLET PO SCH ×3 (00:06→12:50)
[2018-10-28] MEDS: HEPARIN SOD (PORCINE) 5,000 UNIT/ML 1 ML SYRINGE SUBCUT SCH ×2 (05:27→13:34)
[2018-10-28] MEDS: LEVOTHYROXINE SODIUM 0.05 MG TABLET PO SCH (05:48)
[2018-10-28] MEDS: LISINOPRIL 10 MG TABLET PO SCH (09:17)
[2018-10-28] MEDS: FOLIC ACID 1 MG TABLET PO SCH (09:17)
[2018-10-28] MEDS: MULTIVITAMIN TABLET PO SCH (09:17)
[2018-10-28] MEDS: DOCUSATE SODIUM 100 MG CAPSULE PO SCH (09:17)
[2018-10-28] MEDS: THIAMINE HCL 100 MG TABLET PO SCH (09:17)
[2018-10-28 16:01] VITALS: BP 140/92
--- NOTE | 2018-10-29 14:08 | PDOC DISCHARGE SUMMARY ---
General - Admit/Disc Date/PCP Admission Date/Primary Care Provider: 10/24/18 10:44 Discharge Date: 10/28/18 - Discharge Diagnosis (1) Alcohol withdrawal Is this a current diagnosis for this admission?: Yes Summary: The patient was admitted to [facility] on continuous cardiac telemetry. He was provided scheduled Valium every 6 hours which was slowly decreased over the course of his admission with excellent patient tolerance. (20-> 15-> 7-> 2 mg q6h). IV Ativan 2 mg was available every 2 hours as needed for anxiety/agitation/withdrawal symptoms; he did not require any doses after the 1st 24 hours. At time of discharge, the patient was in stable condition, had been administered 2 mg Valium q6hrs x 24 hours without need for prn ativan or lopressor for symptom or blood pressure management. The patient is discharged to home with self care. He is provided a prescription for Valium 2 mg p.o. q6hp #12. 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 He is encouraged to return to the emergency department as needed for concerning symptoms. (2) Alcoholism with alcohol dependence Is this a current diagnosis for this admission?: Yes Summary: Serum EtOH on presentation to the emergency department was 403. 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 Patient was cleared for discharge from mental health services. Discharge planning has provided area community resource information to patient; he declines offers to assist with arranging for inpatient rehabilitation. He was started on daily multivitamin, thiamine, and folic acid supplementation and provided prescriptions to continue post-discharge. (3) HTN (hypertension) Is this a current diagnosis for this admission?: Yes Summary: Continue home dose lisinopril. Cardiac diet. (4) Hypothyroid Is this a current diagnosis for this admission?: Yes Summary: Continue home dose Synthroid. (5) Dehydration Is this a current diagnosis for this admission?: Yes Summary: Resolved. Encouraged p.o. fluids. - Additional Information Resuscitation Status: Full Code Discharge Diet: Cardiac Discharge Activity: Activity As Tolerated, Balance Activity w/Rest, Slowly Increase Activity Prescriptions: Diazepam [Valium 2 mg Tablet] 2 mg PO Q6HP PRN #12 tablet PRN Reason: Folic Acid [Folvite 1 mg Tablet] 1 mg PO DAILY #90 tablet Multivitamin [Tab-A-Nilsa (Multiple Vitamin) Tablet] 1 tab PO DAILY #90 tablet Thiamine HCl [Thiamine 100 mg Tablet] 100 mg PO DAILY #90 tablet Home Medications: Levothyroxine Sodium [Synthroid 0.05 mg Tablet] 0.05 mg PO Q6AM 10/24/18 Lisinopril [Prinivil] 20 mg PO QAM 10/24/18 Acetaminophen [Tylenol 325 mg Tablet] 650 mg PO Q4HP PRN tablet 10/28/18 Diazepam [Valium 2 mg Tablet] 2 mg PO Q6HP PRN #12 tablet 10/28/18 Docusate Sodium [Colace 100 mg Capsule] 100 mg PO DAILY capsule 10/28/18 Folic Acid [Folvite 1 mg Tablet] 1 mg PO DAILY #90 tablet 10/28/18 Multivitamin [Tab-A-Nilsa (Multiple Vitamin) Tablet] 1 tab PO DAILY #90 tablet 10/28/18 Thiamine HCl [Thiamine 100 mg Tablet] 100 mg PO DAILY #90 tablet 10/28/18 History of Present Illness History of Present Illness: CHANNING DE LA CRUZ is a 43 year old male with a past medical history significant for hypothyroidism, hypertension, GERD, and alcohol dependence who presented to the emergency department today requesting assistance with alcohol detoxification. 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 Evaluation by the emergency department provider revealed sinus tachycardia, elevated serum EtOH (403), and dehydration (sodium 136, potassium 5.4, bicarb 17, anion gap 23, creatinine 1.29). He is referred to the hospitalist service for admission and management of the above-stated complaints. Physical Exam Vital Signs: Temp Pulse Resp BP Pulse Ox 97.4 F 53 L 15 140/92 H 92 10/28/18 16:27 10/28/18 16:27 10/28/18 16:27 10/28/18 16:27 10/28/18 16:27 Intake & Output 10/28/18 10/29/18 10/30/18 06:59 06:59 06:59 Intake Total 977 360 Balance 977 360 Weight 74.1 kg General appearance: PRESENT: no acute distress, well-developed, well-nourished Head exam: PRESENT: atraumatic, normocephalic Eye exam: PRESENT: conjunctiva pink, EOMI, PERRLA. ABSENT: scleral icterus Ear exam: PRESENT: normal external ear exam Mouth exam: PRESENT: moist, tongue midline Neck exam: ABSENT: carotid bruit, JVD, lymphadenopathy, thyromegaly Respiratory exam: PRESENT: clear to auscultation vinicio. ABSENT: rales, rhonchi, wheezes Cardiovascular exam: PRESENT: RRR. ABSENT: diastolic murmur, rubs, systolic murmur Pulses: PRESENT: normal dorsalis pedis pul Vascular exam: PRESENT: normal capillary refill GI/Abdominal exam: PRESENT: normal bowel sounds, soft. ABSENT: distended, guarding, mass, organolmegaly, rebound, tenderness Rectal exam: PRESENT: deferred Extremities exam: PRESENT: full ROM. ABSENT: calf tenderness, clubbing, pedal edema Neurological exam: PRESENT: alert, awake, oriented to person, oriented to place, oriented to time, oriented to situation, CN II-XII grossly intact. ABSENT: motor sensory deficit Psychiatric exam: PRESENT: appropriate affect, normal mood. ABSENT: homicidal ideation, suicidal ideation Skin exam: PRESENT: dry, intact, warm. ABSENT: cyanosis, rash Results Laboratory Results: 10/26/18 04:16 10/26/18 04:16 Qualifiers - * PATIENT BEING DISCHARGED WITH ANY OF THE FOLLOWING DIAGNOSIS: No Acute Heart Failure Is this a Heart Failure Patient?: No Plan Discharge Plan: Follow up with primary care provider within 1 week. 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 Do NOT drink any amount of alcohol. Return to the emergency department as needed for concerning symptoms. Time Spent: Less than 30 Minutes
== END 2018-10-28 16:46 | disposition home or self-care (01) | DRG 897 ==
LOC: ER 13:17 → EH 10-24 10:44 → 3W 10-24 12:15
PROVIDERS: ADMIT Internal Medicine; ATTEND Internal Medicine
DX: F10.231 Alcohol dependence with withdrawal delirium (principal); E03.9 Hypothyroidism, unspecified; K21.9 Gastro-esophageal reflux disease without esophagitis; F41.9 Anxiety disorder, unspecified; F32.9 Major depressive disorder, single episode, unspecified; E16.2 Hypoglycemia, unspecified; Y90.8 Blood alcohol level of 240 mg/100 ml or more; E78.5 Hyperlipidemia, unspecified; Z88.8 Allergy status to other drugs, medicaments and biological substances; Z79.899 Other long term (current) drug therapy; E86.0 Dehydration
CPT/HCPCS: 36415; 80048; 80053; 80307; 81001; 83735; 84100; 85025; 85027; 85610; 93005; 93010; 96374; 96376; 99291; J2060; J2550; J3490; J7030; J7120; S0164

== ENCOUNTER 2019-05-16 07:18 | Emergency (ER) | payer BC ==
[2019-05-16 08:29] LABS: ABSOLUTE LYMPHOCYTES (AUTO) 1.3 10^3/uL (0.5-4.7); ABSOLUTE MONOCYTES (AUTO) 0.5 10^3/uL (0.1-1.4); ABSOLUTE NEUT (AUTO) 2.2 10^3/uL (1.7-8.2); BASOPHILS % (AUTO) 0.6 % (0-2); EOSINOPHILS % (AUTO) 0.9 % (0-6); HEMATOCRIT 43.2 % (37.9-51.0); HEMOGLOBIN 14.7 g/dL (13.5-17.0); LYMPHOCYTES % (AUTO) 32.6 % (13-45); MEAN CORPUSCULAR HEMOGLOBIN 34.9 pg (27.0-33.4); MEAN CORPUSCULAR VOLUME 103 fl (80-97); MONOCYTES % (AUTO) 11.6 % (3-13); PLATELET COUNT 201 10^3/uL (150-450); RED BLOOD COUNT 4.22 10^6/uL (4.35-5.55); RED CELL DISTRIBUTION WIDTH 14.9 % (11.5-14.0); SEGMENTED NEUTROPHILS % (AUTO) 54.3 % (42-78); TOTAL CELLS COUNTED % (AUTO) 100 %; WHITE BLOOD COUNT 4.1 10^3/uL (4.0-10.5)
[2019-05-16 08:53] LABS: ALBUMIN 5.1 g/dL (3.5-5.0); ALKALINE PHOSPHATASE 62 U/L (38-126); ANION GAP 18 (5-19); ASPARTATE AMINO TRANSFERASE 103 U/L (17-59); BILIRUBIN,DIRECT 0.3 mg/dL (0.0-0.4); BILIRUBIN,TOTAL 0.6 mg/dL (0.2-1.3); BLOOD UREA NITROGEN 15 mg/dL (7-20); CALCIUM 10.4 mg/dL (8.4-10.2); CARBON DIOXIDE 26 mmol/L (22-30); CHLORIDE 100 mmol/L (98-107); GLUCOSE 98 mg/dL (75-110); POTASSIUM 4.2 mmol/L (3.6-5.0); TOTAL PROTEIN 8.6 g/dL (6.3-8.2)
[2019-05-16 08:55] LABS: ACETAMINOPHEN < 10 ug/mL (10-30); SALICYLATE < 1.0 mg/dL (2.0-20.0)
--- NOTE | 2019-05-16 09:03 | ER Document Report ---
Entered by JONATHON MARTINEZ SCRIBE 05/16/19 0820 Acting as scribe for:ANA MACK MD ED General <LEYLA ROSE - Last Filed: 05/16/19 14:06> - General Information source: Patient, [facility] Records TRAVEL OUTSIDE OF THE U.S. IN LAST 30 DAYS: No - Related Data Home Medications: Lisinopril. Buspirone. Levothyroxine. Propranolol <ANA MACK - Last Filed: 05/16/19 14:12> - General Chief Complaint: Psych Problem Stated Complaint: PSYCH EVAL Time Seen by Provider: 05/16/19 08:18 Primary Care Provider: ИРИНА EASLEY MD [Primary Care Provider] - Follow up as needed Notes: This 43 year old male patient presents to the ED today via mobile crisis with complaints of alcohol abuse. Patient reports that he has been sober for the past x3-4 months, but started "drinking his problems away" last night because his girlfriend broke up with him. Patient states that his last drink was around 6:30 PM last night. 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 [employer] Family History: Hyperlipidemia, Thyroid Disfunction Patient has suicidal ideation: Yes Patient has homicidal ideation: No Neurological Medical History: Reports: Hx Seizures - With alcohol withdrawal Endocrine Medical History: Reports: Hx Hypothyroidism Renal/ Medical History: Reports: Hx Kidney Stones GI Medical History: Reports: Hx Gastroesophageal Reflux Disease Psychiatric Medical History: Reports: Hx Anxiety, Hx Depression Past Surgical History: Reports: None - Immunizations Immunizations up to date: Yes Hx Diphtheria, Pertussis, Tetanus Vaccination: Yes <ANA MACK - Last Filed: 05/16/19 14:12> Review of Systems - Review of Systems Constitutional: See HPI, Other - Alcohol abuse EENT: No symptoms reported Cardiovascular: No symptoms reported Respiratory: No symptoms reported Gastrointestinal: No symptoms reported Genitourinary: No symptoms reported Male Genitourinary: No symptoms reported Musculoskeletal: No symptoms reported Skin: No symptoms reported Hematologic/Lymphatic: No symptoms reported -: Yes All other systems reviewed and negative <ANA MACK - Last Filed: 05/16/19 14:12> Physical Exam - Vital signs Interpretation: Hypertensive - General General appearance: Appears well, Alert, Other - smiling and verbose, alcohol odor observed In distress: None - HEENT Head: Normocephalic, Atraumatic Eyes: Normal Pupils: PERRL - Respiratory Respiratory status: No respiratory distress Chest status: Nontender Breath sounds: Normal Chest palpation: Normal - Cardiovascular Rhythm: Regular Heart sounds: Normal auscultation Murmur: No - Abdominal Inspection: Normal Distension: No distension Bowel sounds: Normal Tenderness: Nontender - abdomen soft Organomegaly: No organomegaly - Back Back: Normal, Nontender - Extremities General upper extremity: Normal inspection General lower extremity: Normal inspection - Neurological Neuro grossly intact: Yes - Psychological Associated symptoms: Normal affect, Normal mood - Skin Skin Temperature: Warm Skin Moisture: Dry Skin Color: Normal <ANA MACK - Last Filed: 05/16/19 14:12> - Vital signs Vitals: Temp Pulse Resp BP Pulse Ox 97.8 F 80 20 138/90 H 96 05/16/19 07:23 05/16/19 07:23 05/16/19 07:23 05/16/19 07:23 05/16/19 07:23 Course - Laboratory Result Diagrams: 05/16/19 08:15 05/16/19 08:15 <LEYLA ROSE - Last Filed: 05/16/19 14:06> - Laboratory Result Diagrams: 05/16/19 08:15 05/16/19 08:15 - EKG Interpretation by Tx EKG shows normal: Sinus rhythm, [place], Intervals, QRS Complexes, ST-T Waves Rate: Normal - 70 Rhythm: NSR <ANA MACK - Last Filed: 05/16/19 14:12> - Re-evaluation Re-evalutation: 05/16/19 10:01 Patient's alcohol level was 324mg/% at 8:15 AM. He will have an alcohol level below 200 about 2:30 PM today, at that time we can try to get him over to [place] rehab. (ANA MACK) - Vital Signs Vital signs: Temp Pulse Resp BP Pulse Ox 98.2 F 64 18 104/62 97 05/16/19 13:37 05/16/19 13:37 05/16/19 13:37 05/16/19 13:37 05/16/19 13:37 - Laboratory Laboratory results interpreted by me: 05/16/19 05/16/19 05/16/19 08:15 08:15 08:15 RBC 4.22 L MCV 103 H MCH 34.9 H RDW 14.9 H Creatinine 1.44 H Est GFR (MDRD) Non-Af 53 L Calcium 10.4 H AST 103 H Total Protein 8.6 H Albumin 5.1 H Urine Protein 100 H Urine Glucose (UA) 50 H Urine Blood SMALL H Salicylates < 1.0 L Acetaminophen < 10 L Serum Alcohol 324 H* Discharge <LEYLA ROSE - Last Filed: 05/16/19 14:06> <ANA MACK - Last Filed: 05/16/19 14:12> - Discharge Clinical Impression: Alcohol abuse Alcohol intoxication Qualifiers: Complication of substance-induced condition: uncomplicated Qualified Code(s): F 10.920 - Alcohol use, unspecified with intoxication, uncomplicated Depression Qualifiers: Depression Type: unspecified Qualified Code(s): F32.9 - Major depressive disorder, single episode, unspecified Condition: Stable Disposition: HOME, SELF-CARE Additional Instructions: You have been evaluated both medical and behavioral health teams have been deemed appropriate for discharge. Behavioral health team has been able to secure a bed at [facility]. You are highly encouraged to follow through with this voluntary placement. Please follow-up with outpatient substance use services for your continued treatment. You have also been p rovided additional resources with the [facility] and [facility]. ACUTE ALCOHOL INTOXICATION and ALCOHOL ABUSE: Your evaluation revealed very high levels of alcohol. You can from drinking a large amount of alcohol rapidly! Further, there's the risk of falls, traffic accidents, and fights. A high portion (about 50 percent) of the serious injuries seen in hospital emergency rooms are caused by alcohol. Alcohol overdosage is usually due to an underlying emotional or psychiatric problem. You may benefit from counselling. If "binge" drinking is an ongoing problem for you, or if you drink ANY AMOUNT of alcohol EVERY day, you most likely have a tendency to alcoholism. You should avoid alcohol totally. We can refer you for treatment. Persons with alcohol problems are often also prone to other addictions -- you should discuss any use of medications or drugs with the doctor. You should be watched at home for the next several hours by someone who has not been drinking. Get extra fluids for the next 24 hours. Call the doctor if there is repeated vomiting, increasing headache, decreasing level of alertness, or any other worsening. CHRONIC ALCOHOLISM and ALCOHOL ABUSE: Your evaluation reveals evidence of chronic alcoholism, an addiction to alcohol. The tendency to alcoholism may be inherited. Chronic use of alcohol weakens muscles, causes fatty deposits in the liver, damages the stomach, makes you more prone to infections, and can cause defects in unborn children. In the long run, brain atrophy and cirrhosis of the liver result. You are also at greater risk for certain types of cancer, such as cancer of the mouth, throat, stomach, and liver. Counselling services are available to help you. In-hospital treatment programs often help. Support groups such as Alcoholics Anonymous can be very useful in beating this addiction. Your physician can make a referral for you. As alcoholics often are prone to other addictions, you should discuss your use of any other medications with the doctor. ALCOHOL WITHDRAWAL: Your symptoms are caused by alcohol withdrawal. After a period of frequent drinking, the brain and body are changed by the alcohol. When you quit or reduce your drinking, the nervous system becomes unstable. Withdrawal symptoms can start a few hours after your last drink, but sometimes don't begin until a couple of days later. Symptoms can include shakiness, sweating, insomnia, nausea, vomiting, fearfulness, hallucinations, and seizures. In addition to the acute effects of alcohol withdrawal, we often have to deal with the medical effects of alcoholism. These problems often include dehydration, stomach irritation, intestinal bleeding, low blood sugar, liver disease, and pancreas inflammation. Treatment for alcohol withdrawal includes mild sedatives, vitamins, and fluids. You need to be with someone who can help if symptoms become severe. Many patients can withdraw at home. Admission to the hospital or a detox facility may be necessary if withdrawal symptoms are severe and uncontrollable. Abstaining from alcohol is the only effective long-term treatment. If you start drinking again, you will not be able to control yourself after the first drink. Treatment programs are available. In addition, many alcoholics benefit from Alcoholics Anonymous or other support groups available through your counselor or methodist inking machine tender. AL-ANON and ALA-TEEN are support groups for friends and family members of an alcoholic. Go to the emergency room if you develop persistent vomiting, severe abdominal pain, fever, shortness of breath, hallucinations, uncontrollable tremors, or seizures. DEPRESSION: Your evaluation reveals that you have mental depression. While symptoms may be vague, they often include disturbance of sleep, fatigue, loss of appetite, and general loss of interest in life. While depression may be a side effect of drugs, or a reaction to a major change in your life, many cases have no known cause. If depression is acute, and related to a major loss in your life, you can expect it to clear completely with time. If you have been depressed a long time, are prone to repeated bouts of depression or low mood, or have been th inking of suicide, get help. Depression can be treated with anti-depressant medication and counselling. Long-term depression will often take a few weeks to clear, even with appropriate medication. Follow-up care is important. FOLLOW-UP CARE: If you have been referred to a physician for follow-up care, call the physicians office for an appointment as you were instructed or within the next two days.~ If you experience worsening or a significant change in your symptoms, notify the physician immediately or return to the Emergency Department at any time for re-evaluation. Referrals: ИРИНА EASLEY MD [Primary Care Provider] - Follow up as needed Scribe Attestation: 05/16/19 09:03 I personally performed the services described in the documentation, reviewed and edited the documentation which was dictated to the scribe in my presence, and it accurately records my words and actions. (ANA MACK) I personally performed the services described in the documentation, reviewed and edited the documentation which was dictated to the scribe in my presence, and it accurately records my words and actions.
[2019-05-16 09:10] LABS: APPEARANCE,URINE CLEAR; BILIRUBIN,URINE NEGATIVE (NEGATIVE); COLOR,URINE YELLOW; GLUCOSE, URINE 50 mg/dL (NEGATIVE); KETONES,URINE NEGATIVE (NEGATIVE); LEUKOCYTE ESTERASE,URINE NEGATIVE (NEGATIVE); NITRITE,URINE NEGATIVE (NEGATIVE); PROTEIN,URINE 100 mg/dL (NEGATIVE); URINE SPECIFIC GRAVITY 1.006; UROBILINOGEN,URINE NEGATIVE mg/dL (<2.0)
[2019-05-16 09:13] LABS: ALCOHOL 324 mg/dL (NONE DETECTED)
[2019-05-16 09:25] LABS: URINE AMPHETAMINES SCREEN NEGATIVE; URINE BARBITURATES SCREEN NEGATIVE; URINE BENZODIAZEPINES SCREEN NEGATIVE; URINE COCAINE SCREEN NEGATIVE; URINE MARIJUANA (THC) SCREEN NEGATIVE; URINE METHADONE SCREEN NEGATIVE; URINE PHENCYCLIDINE SCREEN NEGATIVE
--- NOTE | 2019-05-16 13:25 | PSYCHOLOGICAL NOTE ---
Psych Note - Psych Note Date seen by psych provider: 05/16/19 Time seen by psych provider: 09:35 Psych Note: Reason for Consult: Substance abuse; Suicidal ideation Consent permissions: Mother at bedside per patient's request Patient to the ED with mobile crisis. Patient states that he has been intoxicated and had suicidal thoughts. Called mobile crisis and told bilingual social worker he was afraid that if they left he would kill himself. Patient's girlfriend broke up with him and didn't give him a reason why. States that he doesn't know how to deal with it. Patient denies wanting to , stating "one of these days I am going to because of this (relapsing with alcohol)." He disclosed frustration with himself on relapsing again. He denies wanting to go to [facility] but confirms he would like to go to [facility] because he is afraid if he goes home he will drink again. Patient asked what treatment he should engage in since 30 day programs have no helped. Clinician discussed the need for increased support such as AA and therapy. Marcelino bustillos also discussed the possibility of needing longer rehab such as one year. Patient is alert and orientated to person, place, time and circumstance. Mood is dysphoric with tearful affect. Patient denies suicidal and homicidal ideation. Delusions are absent behaviors congruent with an intact reality based presentation I organized and linear thought process. Eye contact is fair. Conversational speech is within normal rate, tone and prosody. Intellectual abilities appear to be within the average range. Attention and concentration are fair. Insight, judgment, impulse control are fair. Clinician notes patient is currently under the influence with EtOH of 324. Behavioral health contacted [facility] to facilitate crisis bed. Substance abuse; alcohol severe No medication recommendations at this time Impression\\plan: Patient is cleared from acute psychiatric services. Patient does not meet IVC criteria per [place] GS 120 2C. Patient reports relapsing after being sober for 3 to 4 weeks. He reports the last time he went to detox was in November. Patient does report concern that his continued relapses will 1 day kill him. He denies wanting to and will states he wants to get help. Patient is still unwilling to engage in a longer rehab program such as [facility] or [facility] however is willing to take that information; this information was provided to him and his mother. Patient would like assistance in going to [facility] as he is afraid if he returns home he will drink again. Behavioral health team has been able to obtain secure a bed for the patient at [facility] at 3 PM; patient is highly encouraged to follow through with his voluntary placement. Dr. Nichole was consulted to care management of this patient; attending physicians in agreement with recommendations and disposition.
[2019-05-16 15:03] VITALS: BP 108/71
--- NOTE | 2019-05-16 21:52 | EKG REPORT ---
SEVERITY:- NORMAL ECG - SINUS RHYTHM : Confirmed by: Les Pedraza MD 16-May-2019 21:51:55
== END 2019-05-16 15:02 | disposition home or self-care (01) ==
LOC: ER 07:18
DX: F32.9 Major depressive disorder, single episode, unspecified (principal); F10.920 Alcohol use, unspecified with intoxication, uncomplicated; Z87.442 Personal history of urinary calculi
CPT/HCPCS: 36415; 80053; 80307; 81001; 83735; 85025; 93005; 93010; 99285

== ENCOUNTER 2019-11-16 17:10 | Emergency (ER) | payer BC ==
--- NOTE | 2019-11-16 17:50 | ER Document Report ---
ED Medical Screen (RME) - General Chief Complaint: Medical Clearance Stated Complaint: MEDICAL CLEARANCE/ALCOHOL Time Seen by Provider: 11/16/19 17:47 Primary Care Provider: ИРИНА EASLEY MD [Primary Care Provider] - Follow up as needed Mode of Arrival: Wheelchair Information source: Patient Notes: 44-year-old male presents to ED for clearance. He has a bed at [facility] if he can get cleared by 10 PM. He states he is here for drinking too much alcohol. He states he drank three fourths of a gallon of vodka today. He states he has a history of high blood pressure reflux anxiety and hypothyroid. He states he drinks daily. He is was in a alcohol rehab and got out Sunday started drinking that evening. He was brought in by mobile crisis. He is intoxicated. I have greeted and performed a rapid initial assessment of this patient. A comprehensive ED assessment and evaluation of the patient, analysis of test results and completion of medical decision making process will be conducted by an additional ED providers. TRAVEL OUTSIDE OF THE [place] IN LAST 30 DAYS: No - Related Data Allergies/Adverse Reactions: tamsulosin HCl [From Flomax] Allergy (Verified 04/15/13 17:19) Home Medications: levothyroxine, propanolol, buspirone, omeprazole, hydrochloriazide Past Medical History - Social History Chew tobacco use (# tins/day): No Frequency of alcohol use: None Drug Abuse: None - Past Medical History Cardiac Medical History: Reports: Hx Hypercholesterolemia, Hx Hypertension Denies: Hx Coronary Artery Disease, Hx DVT, Hx Heart Attack, Hx Pulmonary Embolism Pulmonary Medical History: Denies: Hx Asthma, Hx COPD, Hx Tuberculosis Neurological Medical History: Reports: Hx Seizures - With alcohol withdrawal. Denies: Hx Migraine Endocrine Medical History: Reports: Hx Hypothyroidism. Denies: Hx Diabetes Mellitus Type 1, Hx Diabetes Mellitus Type 2 Renal/ Medical History: Reports: Hx Kidney Stones. Denies: Hx Peritoneal Dialysis GI Medical History: Reports: Hx Gastroesophageal Reflux Disease. Denies: Hx Crohn's Disease, Hx Ulcerative Colitis Musculoskeltal Medical History: Denies Hx Arthritis, Denies Hx Gout Skin Medical History: Denies Hx Eczema, Denies Hx Psoriasis Psychiatric Medical History: Reports: Hx Anxiety, Hx Depression - Immunizations Immunizations up to date: Yes Hx Diphtheria, Pertussis, Tetanus Vaccination: Yes Physical Exam - Vital signs Vitals: Temp Pulse Resp BP Pulse Ox 97.4 F 104 H 20 129/96 H 94 11/16/19 17:39 11/16/19 17:39 11/16/19 17:39 11/16/19 17:39 11/16/19 17:39 Course - Vital Signs Vital signs: Temp Pulse Resp BP Pulse Ox 97.4 F 104 H 20 129/96 H 94 11/16/19 17:39 11/16/19 17:39 11/16/19 17:39 11/16/19 17:39 11/16/19 17:39 Doctor's Discharge - Discharge Referrals: ИРИНА EASLEY MD [Primary Care Provider] - Follow up as needed
--- NOTE | 2019-11-16 17:55 | PSYCHOLOGICAL NOTE ---
Psych Note - Psych Note Date seen by psych provider: 11/16/19 Psych Note: Patient has a reserved bed at [facility] for 10pm tonight. This has been confirmed with Tracey JAIMES of [facility]. Please do a nurse to nurse once medical cleared and the patient is under BAL of 200; [phone] Please call if discharge time will be later than 10pm and [facility] will continue to coordinate with [facility] ED
[2019-11-16] MEDS: NORMAL SALINE 1000 ML 1,000 ML IV PRN ×2 (18:34→20:01)
[2019-11-16 18:53] LABS: ABSOLUTE BASOPHILS # (AUTO) 0.1 10^3/uL (0.0-0.2); ABSOLUTE LYMPHOCYTES (AUTO) 2.3 10^3/uL (0.5-4.7); ABSOLUTE NEUT (AUTO) 9.2 10^3/uL (1.7-8.2); BASOPHILS % (AUTO) 0.4 % (0-2); EOSINOPHILS % (AUTO) 0.2 % (0-6); HEMATOCRIT 41.3 % (37.9-51.0); LYMPHOCYTES % (AUTO) 18.1 % (13-45); MEAN CORPUSCULAR HEMOGLOBIN 34.8 pg (27.0-33.4); MEAN CORPUSCULAR HGB CONC 33.7 g/dL (32.0-36.0); MEAN CORPUSCULAR VOLUME 103 fl (80-97); MONOCYTES % (AUTO) 7.6 % (3-13); PLATELET COUNT 264 10^3/uL (150-450); RED BLOOD COUNT 4.01 10^6/uL (4.35-5.55); RED CELL DISTRIBUTION WIDTH 13.4 % (11.5-14.0); SEGMENTED NEUTROPHILS % (AUTO) 73.7 % (42-78); TOTAL CELLS COUNTED % (AUTO) 100 %; WHITE BLOOD COUNT 12.4 10^3/uL (4.0-10.5)
[2019-11-16 19:13] LABS: ALBUMIN 5.1 g/dL (3.5-5.0); ALKALINE PHOSPHATASE 62 U/L (38-126); ANION GAP 16 (5-19); ASPARTATE AMINO TRANSFERASE 56 U/L (17-59); BILIRUBIN,TOTAL 0.6 mg/dL (0.2-1.3); BLOOD UREA NITROGEN 9 mg/dL (7-20); CALCIUM 9.5 mg/dL (8.4-10.2); CARBON DIOXIDE 25 mmol/L (22-30); CHLORIDE 101 mmol/L (98-107); GLUCOSE 108 mg/dL (75-110); POTASSIUM 4.3 mmol/L (3.6-5.0)
[2019-11-16 19:20] LABS: ACETAMINOPHEN < 10 ug/mL (10-30); SALICYLATE < 1.0 mg/dL (2.0-20.0)
[2019-11-16 19:24] LABS: ALCOHOL 373 mg/dL (NONE DETECTED)
[2019-11-16] MEDS ORDERED: LORAZEPAM INJ 2 MG/1 ML VIAL IV ONE ×2 (20:39→23:12)
[2019-11-16] MEDS ORDERED: THIAMINE HCL 100 MG TABLET PO ONE (20:39)
[2019-11-16 20:43] LABS: APPEARANCE,URINE CLEAR; BILIRUBIN,URINE NEGATIVE (NEGATIVE); COLOR,URINE YELLOW; GLUCOSE, URINE NEGATIVE (NEGATIVE); KETONES,URINE TRACE mg/dL (NEGATIVE); LEUKOCYTE ESTERASE,URINE NEGATIVE (NEGATIVE); NITRITE,URINE NEGATIVE (NEGATIVE); PROTEIN,URINE 100 mg/dL (NEGATIVE); URINE SPECIFIC GRAVITY 1.009; UROBILINOGEN,URINE NEGATIVE mg/dL (<2.0)
--- NOTE | 2019-11-16 20:43 | ER Document Report ---
ED General - General Chief Complaint: ETOH Abuse Stated Complaint: MEDICAL CLEARANCE/ALCOHOL Time Seen by Provider: 11/16/19 17:47 Primary Care Provider: ИРИНА EASLEY MD [Primary Care Provider] - Follow up as needed Mode of Arrival: Wheelchair Notes: Patient is a 44-year-old white male with a past medical history of alcoholism who presents to the emergency department the chief complaint of wanting detox. The patient reports that he is a heavy drinker. 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 Patient reports he is try to get help in the past, states that he was just released from a detox facility. He reports he cannot stop drinking. He states that he drinks about three quarters of a bottle of a half a gallon bottle of vodka per day. He recently also broke up with his new girlfriend. He expresses sincere interest to get help to stop drinking. He denies any other complaints. TRAVEL OUTSIDE OF THE [place] IN LAST 30 DAYS: No - Related Data Allergies/Adverse Reactions: tamsulosin HCl [From [employer]] Allergy (Verified 04/15/13 17:19) Home Medications: levothyroxine, propanolol, buspirone, omeprazole, hydrochloriazide Past Medical History - General Information source: Patient - Social History Smoking Status: Never Smoker Chew tobacco use (# tins/day): No Frequency of alcohol use: None Drug Abuse: None Family History: Hyperlipidemia, Thyroid Disfunction Patient has homicidal ideation: No - Past Medical History Cardiac Medical History: Reports: Hx Hypercholesterolemia, Hx Hypertension Denies: Hx Coronary Artery Disease, Hx DVT, Hx Heart Attack, Hx Pulmonary Embolism Pulmonary Medical History: Denies: Hx Asthma, Hx COPD, Hx Tuberculosis Neurological Medical History: Reports: Hx Seizures - With alcohol withdrawal. Denies: Hx Migraine Endocrine Medical History: Reports: Hx Hypothyroidism. Denies: Hx Diabetes Mellitus Type 1, Hx Diabetes Mellitus Type 2 Renal/ Medical History: Reports: Hx Kidney Stones. Denies: Hx Peritoneal Dialysis GI Medical History: Reports: Hx Gastroesophageal Reflux Disease. Denies: Hx Crohn's Disease, Hx Ulcerative Colitis Musculoskeletal Medical History: Denies Hx Arthritis, Denies Hx Gout Skin Medical History: Denies Hx Eczema, Denies Hx Psoriasis Psychiatric Medical History: Reports: Hx Anxiety, Hx Depression - Immunizations Immunizations up to date: Yes Hx Diphtheria, Pertussis, Tetanus Vaccination: Yes Review of Systems - Review of Systems Neurological/Psychological: Depression -: Yes All other systems reviewed and negative Physical Exam - Vital signs Vitals: Temp Pulse Resp BP Pulse Ox 97.4 F 104 H 20 129/96 H 94 11/16/19 17:39 11/16/19 17:39 11/16/19 17:39 11/16/19 17:39 11/16/19 17:39 - General General appearance: Appears well, Alert In distress: None - HEENT Conjunctiva: Normal Extraocular movements intact: Yes Pupils: PERRL Mucous membranes: Moist Pharynx: Normal Neck: Supple - Respiratory Respiratory status: No respiratory distress Chest status: Nontender Breath sounds: Normal Chest palpation: Normal - Cardiovascular Rhythm: Regular Heart sounds: Normal auscultation - Neurological Neuro grossly intact: Yes Cognition: Normal Orientation: AAOx4 - Psychological Associated symptoms: Tearful - Skin Skin Temperature: Warm Skin Moisture: Dry Skin Color: Normal Course - Re-evaluation Re-evalutation: 11/16/19 20:43 Patient exhibiting some slight DTs. Will start Ativan. He reports he is not eaten in 3 days, we will give thiamine. Pending alcohol level to reduce below 200 so the patient may be transferred to [facility] for detox. 11/17/19 06:28 Patient's alcohol was decreased to 209. [facility] was called several hours ago and they advised that we will accept this level of alcohol. They did advise however the patient cannot be transferred over until 8 AM per their physician. Patient is remained stable here. He is in no acute distress. Plan will be to discharge him in transfer DX at 8 AM. - Vital Signs Vital signs: Temp Pulse Resp BP Pulse Ox 97.4 F 104 H 22 H 120/69 93 11/16/19 17:39 11/16/19 17:39 11/17/19 07:01 11/17/19 07:01 11/17/19 07:01 - Laboratory Result Diagrams: 11/16/19 18:30 11/16/19 18:30 Laboratory results interpreted by me: 11/16/19 11/16/19 11/16/19 18:30 18:30 20:15 WBC 12.4 H RBC 4.01 L MCV 103 H MCH 34.8 H Absolute Neuts (auto) 9.2 H ALT 58 H Albumin 5.1 H Urine Protein 100 H Urine Ketones TRACE H Urine Blood SMALL H Salicylates < 1.0 L Acetaminophen < 10 L Serum Alcohol 373 H* Discharge - Discharge Clinical Impression: Alcoholism with alcohol dependence Qualifiers: Substance use status: uncomplicated Qualified Code(s): F10.20 - Alcohol depend ence, uncomplicated Condition: Stable Disposition: OTHER Instructions: Alcohol Withdrawl ([facility]), Chronic Alcoholism ([facility]) Additional Instructions: You have been medically cleared for admission to [facility] for assistance with detox from alcohol and recovery. Please follow-up with your regular doctor as necessary and return here or any ER immediately with any new, persistent or worsening symptoms. Referrals: ИРИНА EASLEY MD [Primary Care Provider] - Follow up as needed
[2019-11-16 20:55] LABS: URINE AMPHETAMINES SCREEN NEGATIVE; URINE BARBITURATES SCREEN NEGATIVE; URINE BENZODIAZEPINES SCREEN NEGATIVE; URINE COCAINE SCREEN NEGATIVE; URINE MARIJUANA (THC) SCREEN NEGATIVE; URINE METHADONE SCREEN NEGATIVE; URINE PHENCYCLIDINE SCREEN NEGATIVE
--- NOTE | 2019-11-16 22:42 | EKG REPORT ---
SEVERITY:- NORMAL ECG - SINUS RHYTHM : Confirmed by: Alessandra Adam MD 16-Nov-2019 22:41:35
[2019-11-17 09:26] VITALS: BP 123/67
== END 2019-11-17 08:30 | disposition other institution (70) ==
LOC: ER 17:10
DX: F10.20 Alcohol dependence, uncomplicated (principal); F32.9 Major depressive disorder, single episode, unspecified; E03.9 Hypothyroidism, unspecified; K21.9 Gastro-esophageal reflux disease without esophagitis; F41.9 Anxiety disorder, unspecified; Z79.899 Other long term (current) drug therapy; Z88.8 Allergy status to other drugs, medicaments and biological substances
CPT/HCPCS: 93005; 96376; 99284; 96361; 96374; 36415; 80307 ×4; 85025; 80053; 81001; 84484; 93010; J2060; J7030

== ENCOUNTER 2020-04-21 12:14 | Emergency (ER) | payer SELFPAY ==
[2020-04-21 13:10] LABS: ABSOLUTE LYMPHOCYTES (AUTO) 1.1 10^3/uL (0.5-4.7); ABSOLUTE MONOCYTES (AUTO) 0.3 10^3/uL (0.1-1.4); ABSOLUTE NEUT (AUTO) 5.6 10^3/uL (1.7-8.2); BASOPHILS % (AUTO) 0.7 % (0-2); HEMATOCRIT 41.8 % (37.9-51.0); HEMOGLOBIN 13.9 g/dL (13.5-17.0); LYMPHOCYTES % (AUTO) 15.1 % (13-45); MEAN CORPUSCULAR HEMOGLOBIN 30.6 pg (27.0-33.4); MEAN CORPUSCULAR HGB CONC 33.3 g/dL (32.0-36.0); MEAN CORPUSCULAR VOLUME 92 fl (80-97); MONOCYTES % (AUTO) 4.7 % (3-13); PLATELET COUNT 232 10^3/uL (150-450); RED BLOOD COUNT 4.55 10^6/uL (4.35-5.55); RED CELL DISTRIBUTION WIDTH 14.2 % (11.5-14.0); SEGMENTED NEUTROPHILS % (AUTO) 79.5 % (42-78); TOTAL CELLS COUNTED % (AUTO) 100 %; WHITE BLOOD COUNT 7.1 10^3/uL (4.0-10.5)
[2020-04-21 13:26] LABS: ALKALINE PHOSPHATASE 60 U/L (38-126); ASPARTATE AMINO TRANSFERASE 123 U/L (17-59); BILIRUBIN,DIRECT 0.2 mg/dL (0.0-0.4); BILIRUBIN,TOTAL 0.5 mg/dL (0.2-1.3); BLOOD UREA NITROGEN 16 mg/dL (7-20); CALCIUM 9.3 mg/dL (8.4-10.2); CARBON DIOXIDE 20 mmol/L (22-30); CHLORIDE 99 mmol/L (98-107); GLUCOSE 117 mg/dL (75-110); POTASSIUM 4.3 mmol/L (3.6-5.0); TOTAL PROTEIN 7.8 g/dL (6.3-8.2)
[2020-04-21 13:30] LABS: ACETAMINOPHEN < 10 ug/mL (10-30); SALICYLATE < 1.0 mg/dL (2.0-20.0)
[2020-04-21 13:31] LABS: ANION GAP 19 (5-19)
[2020-04-21 13:38] LABS: ALCOHOL 361 mg/dL (NONE DETECTED)
--- NOTE | 2020-04-21 13:48 | ER Document Report ---
ED General - General Chief Complaint: ETOH Abuse Stated Complaint: SHORT OF BREATH/INTOXICATED Time Seen by Provider: 04/21/20 13:47 Primary Care Provider: ИРИНА EASLEY MD [Primary Care Provider] - Follow up as needed TRAVEL OUTSIDE OF THE [place] IN LAST 30 DAYS: No - HPI Notes: 44-year-old male presents with alcohol intoxication. Patient states that he drank too much alcohol and that he got nervous because he did not feel like his normal drunk today. Patient states that he was previously sober for 100 days. For the past 3 days he has relapsed and has now been drinking heavily. He states that he has called [facility] as he has been admitted there before, however there are no beds available. He is looking for additional resources. He also mentions that he is in between insurances and new coverage has not been started yet, he states he does not want to pay [id number] for a facility at this time. He states his girlfriend is also being seen for alcohol intoxication as well. He denies HI or SI, he denies feeling unsafe at home. The arrival complaint says shortness of breath, patient states that he said that because he did not want to stay his true chief complaint out front, he denies shortness of breath at any time. - Related Data Allergies/Adverse Reactions: tamsulosin HCl [From Flomax] Allergy (Verified 04/15/13 17:19) Past Medical History - General Information source: Patient - Social History Smoking Status: Unknown if Ever Smoked Frequency of alcohol use: Heavy Family History: Hyperlipidemia, Thyroid Disfunction - Past Medical History Cardiac Medical History: Reports: Hx Hypercholesterolemia, Hx Hypertension Denies: Hx Coronary Artery Disease, Hx DVT, Hx Heart Attack, Hx Pulmonary Embolism Pulmonary Medical History: Denies: Hx Asthma, Hx COPD, Hx Tuberculosis Neurological Medical History: Reports: Hx Seizures - With alcohol withdrawal. Denies: Hx Migraine Endocrine Medical History: Reports: Hx Hypothyroidism. Denies: Hx Diabetes Mellitus Type 1, Hx Diabetes Mellitus Type 2 Renal/ Medical History: Reports: Hx Kidney Stones. Denies: Hx Peritoneal Dialysis GI Medical History: Reports: Hx Gastroesophageal Reflux Disease. Denies: Hx Crohn's Disease, Hx Ulcerative Colitis Musculoskeletal Medical History: Denies Hx Arthritis, Denies Hx Gout Skin Medical History: Denies Hx Eczema, Denies Hx Psoriasis Psychiatric Medical History: Reports: Hx Anxiety, Hx Depression - Immunizations Immunizations up to date: Yes Hx Diphtheria, Pertussis, Tetanus Vaccination: Yes Review of Systems - Review of Systems Constitutional: denies: Fever EENT: No symptoms reported Cardiovascular: denies: Chest pain Respiratory: denies: Short of breath Gastrointestinal: denies: Abdominal pain Genitourinary: No symptoms reported Male Genitourinary: No symptoms reported Musculoskeletal: denies: Joint pain Skin: No symptoms reported Hematologic/Lymphatic: No symptoms reported Neurological/Psychological: denies: Homicidal ideation, Headaches, Suicidal ideation Physical Exam - Vital signs Vitals: Temp Pulse Resp BP Pulse Ox 98.1 F 111 H 20 165/104 H 96 04/21/20 12:35 04/21/20 12:35 04/21/20 12:35 04/21/20 12:35 04/21/20 12:35 - General General appearance: Appears well, Alert - HEENT Head: Normocephalic, Atraumatic Eyes: No: Scleral icterus Extraocular movements intact: Yes Pupils: PERRL - Respiratory Breath sounds: Normal - Cardiovascular Rhythm: Regular Heart sounds: Normal auscultation - Abdominal Tenderness: Nontender - Extremities General upper extremity: Normal ROM General lower extremity: Normal ROM - Neurological Neuro grossly intact: Yes Cognition: Normal Orientation: AAOx4 - Psychological Associated symptoms: Other - Intoxicated, calm and cooperative - Skin Skin Temperature: Warm Course - Re-evaluation Re-evalutation: 44-year-old male presents with alcohol intoxication in setting of recently relapsing and has been binge drinking for 3 days. On exam he is well-appearing, hemodynamically stable, lungs are clear, heart RRR, abdomen is soft. He does appear intoxicated but is overall calm and cooperative. He is currently denying any psychiatric complaints, denied HI/SI on multiple occasions. Do not feel that a behavioral health evaluation is necessary at this time, however will continue to observe in the ED and reassess when clinically sober. Will provide resources for detox facilities as well. Start with D5LR to help metabolize off his alcohol. 04/21/20 16:49 Patient reassessed, he appears to be clinically sober at this point. Currently denies complaints. We again discussed any return SI, he again adamantly denies. He is provided resources for the multiple detox facilities in the area, encouraged him to call daily to see if a bed is available. Return precautions given, patient stable at time of discharge. - Vital Signs Vital signs: Temp Pulse Resp BP Pulse Ox 98.1 F 111 H 20 165/104 H 96 04/21/20 12:35 04/21/20 12:35 04/21/20 12:35 04/21/20 12:35 04/21/20 12:35 - Laboratory Result Diagrams: 04/21/20 12:54 04/21/20 12:54 Laboratory results interpreted by me: 04/21/20 04/21/20 04/21/20 12:54 12:54 15:30 RDW 14.2 H Seg Neutrophils % 79.5 H Carbon Dioxide 20 L Creatinine 1.27 H Glucose 117 H AST 123 H ALT 66 H Urine Protein 100 H Urine Ketones 20 H Urine Blood MODERATE H Salicylates < 1.0 L Acetaminophen < 10 L Serum Alcohol 361 H* - EKG Interpretation by Me Additional EKG results interpreted by me: EKG as interpreted by me. Sinus rhythm, rate 98. Narrow QRS, QTC within normal limits. No ST segment elevation. Discharge - Discharge Clinical Impression: Alcohol intoxication Qualifiers: Complication of substance-induced condition: uncomplicated Qualified Code(s): F10.920 - Alcohol use, unspecified with intoxication, uncomplicated Disposition: HOME, SELF-CARE Additional Instructions: Please follow-up with the resources provided to you. Return to the emergency department for any concerning worsening symptoms. Referrals: ИРИНА EASLEY MD [Primary Care Provider] - Follow up as needed
[2020-04-21] MEDS ORDERED: DEXTROSE 5%-LACTATED RINGERS 1,000 ML IV ONE (14:03)
[2020-04-21 16:05] LABS: APPEARANCE,URINE CLEAR; BILIRUBIN,URINE NEGATIVE (NEGATIVE); COLOR,URINE YELLOW; GLUCOSE, URINE NEGATIVE (NEGATIVE); KETONES,URINE 20 mg/dL (NEGATIVE); LEUKOCYTE ESTERASE,URINE NEGATIVE (NEGATIVE); NITRITE,URINE NEGATIVE (NEGATIVE); PROTEIN,URINE 100 mg/dL (NEGATIVE); URINE SPECIFIC GRAVITY 1.012; UROBILINOGEN,URINE NEGATIVE mg/dL (<2.0)
[2020-04-21 17:12] LABS: URINE AMPHETAMINES SCREEN NEGATIVE; URINE BARBITURATES SCREEN NEGATIVE; URINE BENZODIAZEPINES SCREEN NEGATIVE; URINE COCAINE SCREEN NEGATIVE; URINE MARIJUANA (THC) SCREEN NEGATIVE; URINE METHADONE SCREEN NEGATIVE; URINE PHENCYCLIDINE SCREEN NEGATIVE
[2020-04-21 17:18] VITALS: BP 149/92
--- NOTE | 2020-04-21 19:28 | EKG REPORT ---
SEVERITY:- NORMAL ECG - SINUS RHYTHM : Confirmed by: Alessandra Adam MD 21-Apr-2020 19:27:42
== END 2020-04-21 17:12 | disposition home or self-care (01) ==
LOC: ER 12:14
DX: F10.120 Alcohol abuse with intoxication, uncomplicated (principal); I10 Essential (primary) hypertension; Z88.8 Allergy status to other drugs, medicaments and biological substances
CPT/HCPCS: 93005; 99284; 96360; 36415; 80307 ×4; 85025; 80053; 81001; 93010; J7121